=== PATIENT | female | born 1940 | race Caucasian/White ===

== ENCOUNTER 2021-01-22 17:58 | Inpatient (IN) ==
--- NOTE | 2021-01-22 18:11 | Emergency Department Note ---
Altered Mental Status HPI General Chief Complaint: Altered Mental Status Stated Complaint: fall and confusion Time Seen by Provider: 01/22/21 20:41 Source: patient Mode of arrival: ambulatory Limitations: altered mental status History of Present Illness HPI Narrative: Narrative: Presents to room T2 for evaluation of decreased level of consciousness. The patient's history is limited secondary to her decreased level of consciousness. Paramedics report that she was checked on earlier today and seemed to be somewhat confused. She was checked on again later and was noted to be found down on the ground. She was also noted to be wearing the wrong shoe on the wrong foot. There was also noted to be another shoe in the toilet and it was filled with stool. It is unclear when the patient's last known well time was. There was no obvious damage or trauma reported by EMS. Review of the patient's medical record notes that she was seen in the primary care clinic 4 days ago for follow-up. The patient has had a previous lumbar surgery. She also has a chronic pain syndrome per the medical record. Patient is awake but seems somewhat confused given history. She denies any specific focal complaints. She repeats several times that she had back surgery 8 months ago. Related Data Home Medications Medication Instructions Recorded Confirmed ondansetron HCl 4 mg tablet 4 mg PO Q8H 06/09/20 01/18/21 Previous Rx's Medication Instructions Recorded meloxicam 15 mg tablet 15 mg PO QDAY #90 tab 04/17/20 baclofen 20 mg tablet 20 mg PO BID PRN #180 tab 07/15/20 lisinopril 20 mg tablet 20 mg PO QDAY #30 tab 07/15/20 sertraline 50 mg tablet 50 mg PO QDAY #90 tab 10/05/20 trazodone 100 mg tablet See Rx Instructions .ROUTE 10/05/20 .COMPLEX #90 tab Allergies Allergy/AdvReac Type Severity Reaction Status Date / Time gabapentin Allergy Intermediate Confusion Verified 01/18/21 13:41 Review of Systems ROS ROS Narrative: Narrative: Limitations: ROS unobtainable due to patients medical condition [facility] Narrative Patient History Narrative: Narrative: Medical/Surgical/Family History All Active Problems (Updated 01/22/21 @ 21:23 by Franko Navarro MD) Acute delirium (Acute) Acute UTI (Acute) Severe sepsis (Acute) Ingrown nail (Acute) Lumbar pain (Acute) PTSD (post-traumatic stress disorder) (Acute) Headache (Acute) Basal cell adenocarcinoma (Acute) Neuropathy (Acute) Cough (Acute) Burn (Acute) Nail fungus (Acute) Sacral back pain (Acute) Skin lesion (Acute) Cognitive and neurobehavioral dysfunction (Acute) Confusion (Acute) UTI (urinary tract infection) (Acute) Urinary incontinence (Acute) Skin lesion (Acute) History of lumbar fusion (Acute) Osteoarthritis of both hips (Acute) SI (sacroiliac) joint dysfunction (Chronic) History of mammogram (Chronic ~2017) History of colonoscopy (Chronic ~2015) History of surgery (Chronic ~1999) History of cholecystectomy (Chronic ~1981) History of total abdominal hysterectomy (Chronic ~1979) Cervical disc disease (Chronic) Lumbar disc disease (Chronic) Pain in left arm (Chronic) Lymphedema (Chronic) Arthritis (Chronic) Edema of lower extremity (Chronic) Chronic pain syndrome (Chronic) Low back strain (Chronic) 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) Edema of upper extremity (Chronic) Hypertension (Chronic) Medical History (Updated 01/22/21 @ 21:23 by Franko Navarro MD) Arthritis Cervical disc disease Chronic pain syndrome Edema of lower extremity History of mammogram (~2017) Lumbar disc disease Lymphedema Pain in left arm Surgical History History of cholecystectomy (~1981) History of colonoscopy (~2015) History of surgery (~1999) left arm repair History of total abdominal hysterectomy (~1979) Family History Other No pertinent family history Social History Smoking Status: Former smoker Substance Use: does not use Exam Narrative Narrative: Narrative: General Limitations: altered mental status General appearance: Present alert and in no apparent distress Head Head: Present atraumatic, normocephalic and normal inspection Eye Eye: Present normal appearance, PERRL and EOMI; Absent conjunctival injection a nd nystagmus ENT ENT: Present normal exam and mucous membranes moist Neck Neck: Present normal inspection and trachea midline Respiratory Respiratory: Present normal lung sounds bilaterally; Absent respiratory distress Cardiovascular Cardiovascular: Present regular rate, normal rhythm and normal heart sounds Adbominal Abdominal: Present soft; Absent distention, tenderness, guarding and rebound Extremities Extremities: Present normal inspection; Absent tenderness Back Back: Present normal inspection; Absent tenderness Neurological Neurological: Present alert, CN II-XII intact and other (Limited neurologic exam secondary to the patient's altered level of consciousness. No obvious focal deficits identified); Absent motor sensory deficit Psychiatric Psychiatric: Present normal affect and normal mood Skin Skin: Present warm (WNL) and dry; Absent rash Course Vital Signs Vital signs: Vital Signs Temperature 98.4 F 01/22/21 17:59 Pulse Rate 98 H 01/22/21 17:59 Respiratory Rate 18 01/22/21 17:59 Blood Pressure 113/92 01/22/21 17:59 Pulse Oximetry (%) 94 01/22/21 17:59 Temperature 98.4 F 01/22/21 17:59 Pulse Rate 109 H 01/22/21 20:32 Respiratory Rate 18 01/22/21 20:32 Blood Pressure 82/54 01/22/21 20:32 Pulse Oximetry (%) 96 01/22/21 20:32 MDM MDM Narrative Medical decision making narrative: Narrative: Lab Data Lab results reviewed: Yes I reviewed the patient's lab results. Result diagrams: 01/22/21 18:19 01/22/21 18:19 Labs: Lab Results 01/22/21 01/22/21 01/22/21 Range/Units 18:19 18:19 18:19 WBC 15.0 H (4.5-11.0) K/mcL RBC 3.92 L (4.00-5.20) M/mcL Hgb 12.4 (12.0-15.0) g/dL Hct 37.1 (36.0-48.0) % MCV 94.6 (80.0-100.0) fL MCH 31.6 (26.0-34.0) pg MCHC 33.4 (31.0-36.0) g/dL RDW 13.2 (11.5-14.5) % Plt Count 203 (140-440) K/mcL MPV 9.3 (7.4-10.4) fL Neut % (Auto) 88.1 H (38.0-78.0) % Lymph % (Auto) 5.7 L (15.0-49.0) % [place] % (Auto) 6.0 (1.0-12.0) % Eos % (Auto) 0.1 (0.0-7.0) % Baso % (Auto) 0.1 (0.0-2.0) % Lymph # (Auto) 0.85 L (1.50-4.80) K/mcL [place] # (Auto) 0.90 (0.10-0.90) K/mcL Eos # (Auto) 0.01 (0.00-0.70) K/mcL Baso # (Auto) 0.02 (0.00-0.20) K/mcL Absolute Neutrophils 13.25 H (1.80-8.00) K/mcL VBG Lactic Acid 3.1 H (0.5-2.0) mmol/L Sodium 138 (133-145) mmol/L Potassium 4.0 (3.3-5.1) mmol/L Chloride 102 (96-108) mmol/L Carbon Dioxide 22 (22-30) mmol/L Anion Gap 14.0 (8.0-16.0) BUN 21 (8-23) mg/dL Creatinine 1.0 (0.6-1.1) mg/dL GFR Calculation 54 Glucose 141 H (70-105) mg/dL Calcium 9.1 (8.6-10.4) mg/dL Total Bilirubin 0.3 (0.1-1.0) mg/dL AST 24 (<32) U/L ALT 20 (<40) U/L Alkaline Phosphatase 76 (39-117) U/L Ammonia (11-51) umol/L Total Creatine Kinase (24-170) U/L Troponin T (<0.03) ng/mL Total Protein 6.1 (5.9-8.4) gm/dL Albumin 4.1 (3.2-5.2) gm/dL Globulin 2.0 L (2.2-3.7) gm/dL Albumin/Globulin Ratio 2.0 (1.0-2.3) Urine Color Urine Appearance (Clear) Urine pH (5.0-9.0) Ur Specific [place] (1.000-1.035) Urine Protein (Negative) mg/dL Urine Glucose (UA) (Negative) mg/dL Urine Ketones (Negative) mg/dL Urine Occult Blood (Negative) mg/dL Urine Nitrate (Negative) Urine Bilirubin (Negative) mg/dL Urine Urobilinogen mg/dL Ur Leukocyte Esterase (Negative) /ug Urine RBC (0-3) /hpf Urine WBC (0-4) /hpf Ur Squamous Epith Cells (0-4) /hpf Urine Bacteria (0) /hpf Hyaline Casts (0-2) /lph Urine Mucus (None) /hpf Ur Culture Indicated? Urine Opiates Screen Ur Opiates Confirm Ur Oxycodone Screen Urine Methadone Screen Ur Methadone Confirm Ur Barbiturates Screen Ur Barbiturate Confirm Ur Phencyclidine Scrn Urine PCP Confirm Ur Amphetamines Screen U Amphetamines Confirm U Benzodiazepines Scrn U Benzodiazepine Confm Urine Cocaine Screen Urine Cocaine Confirm U Cannabinoids Confirm U Marijuana (THC) Screen Ethyl Alcohol (<0.010) gm/dL 01/22/21 01/22/21 01/22/21 Range/Units 18:19 18:19 18:19 WBC (4.5-11.0) K/mcL RBC (4.00-5.20) M/mcL Hgb (12.0-15.0) g/dL Hct (36.0-48.0) % MCV (80.0-100.0) fL MCH (26.0-34.0) pg MCHC (31.0-36.0) g/dL RDW (11.5-14.5) % Plt Count (140-440) K/mcL MPV (7.4-10.4) fL Neut % (Auto) (38.0-78.0) % Lymph % (Auto) (15.0-49.0) % [place] % (Auto) (1.0-12.0) % Eos % (Auto) (0.0-7.0) % Baso % (Auto) (0.0-2.0) % Lymph # (Auto) (1.50-4.80) K/mcL [place] # (Auto) (0.10-0.90) K/mcL Eos # (Auto) (0.00-0.70) K/mcL Baso # (Auto) (0.00-0.20) K/mcL Absolute Neutrophils (1.80-8.00) K/mcL VBG Lactic Acid (0.5-2.0) mmol/L Sodium (133-145) mmol/L Potassium (3.3-5.1) mmol/L Chloride (96-108) mmol/L Carbon Dioxide (22-30) mmol/L Anion Gap (8.0-16.0) BUN (8-23) mg/dL Creatinine (0.6-1.1) mg/dL GFR Calculation Glucose (70-105) mg/dL Calcium (8.6-10.4) mg/dL Total Bilirubin (0.1-1.0) mg/dL AST (<32) U/L ALT (<40) U/L Alkaline Phosphatase (39-117) U/L Ammonia 45 (11-51) umol/L Total Creatine Kinase 41 (24-170) U/L Troponin T < 0.01 (<0.03) ng/mL Total Protein (5.9-8.4) gm/dL Albumin (3.2-5.2) gm/dL Globulin (2.2-3.7) gm/dL Albumin/Globulin Ratio (1.0-2.3) Urine Color Urine Appearance (Clear) Urine pH (5.0-9.0) Ur Specific [place] (1.000-1.035) Urine Protein (Negative) mg/dL Urine Glucose (UA) (Negative) mg/dL Urine Ketones (Negative) mg/dL Urine Occult Blood (Negative) mg/dL Urine Nitrate (Negative) Urine Bilirubin (Negative) mg/dL Urine Urobilinogen mg/dL Ur Leukocyte Esterase (Negative) /ug Urine RBC (0-3) /hpf Urine WBC (0-4) /hpf Ur Squamous Epith Cells (0-4) /hpf Urine Bacteria (0) /hpf Hyaline Casts (0-2) /lph Urine Mucus (None) /hpf Ur Culture Indicated? Urine Opiates Screen Ur Opiates Confirm Ur Oxycodone Screen Urine Methadone Screen Ur Methadone Confirm Ur Barbiturates Screen Ur Barbiturate Confirm Ur Phencyclidine Scrn Urine PCP Confirm Ur Amphetamines Screen U Amphetamines Confirm U Benzodiazepines Scrn U Benzodiazepine Confm Urine Cocaine Screen Urine Cocaine Confirm U Cannabinoids Confirm U Marijuana (THC) Screen Ethyl Alcohol (<0.010) gm/dL 01/22/21 01/22/21 01/22/21 Range/Units 18:19 18:44 18:44 WBC (4.5-11.0) K/mcL RBC (4.00-5.20) M/mcL Hgb (12.0-15.0) g/dL Hct (36.0-48.0) % MCV (80.0-100.0) fL MCH (26.0-34.0) pg MCHC (31.0-36.0) g/dL RDW (11.5-14.5) % Plt Count (140-440) K/mcL MPV (7.4-10.4) fL Neut % (Auto) (38.0-78.0) % Lymph % (Auto) (15.0-49.0) % [place] % (Auto) (1.0-12.0) % Eos % (Auto) (0.0-7.0) % Baso % (Auto) (0.0-2.0) % Lymph # (Auto) (1.50-4.80) K/mcL [place] # (Auto) (0.10-0.90) K/mcL Eos # (Auto) (0.00-0.70) K/mcL Baso # (Auto) (0.00-0.20) K/mcL Absolute Neutrophils (1.80-8.00) K/mcL VBG Lactic Acid (0.5-2.0) mmol/L Sodium (133-145) mmol/L Potassium (3.3-5.1) mmol/L Chloride (96-108) mmol/L Carbon Dioxide (22-30) mmol/L Anion Gap (8.0-16.0) BUN (8-23) mg/dL Creatinine (0.6-1.1) mg/dL GFR Calculation Glucose (70-105) mg/dL Calcium (8.6-10.4) mg/dL Total Bilirubin (0.1-1.0) mg/dL AST (<32) U/L ALT (<40) U/L Alkaline Phosphatase (39-117) U/L Ammonia (11-51) umol/L Total Creatine Kinase (24-170) U/L Troponin T (<0.03) ng/mL Total Protein (5.9-8.4) gm/dL Albumin (3.2-5.2) gm/dL Globulin (2.2-3.7) gm/dL Albumin/Globulin Ratio (1.0-2.3) Urine Color Yellow Urine Appearance Cloudy A (Clear) Urine pH 5.0 (5.0-9.0) Ur Specific [place] 1.019 (1.000-1.035) Urine Protein 30 A (Negative) mg/dL Urine Glucose (UA) Negative (Negative) mg/dL Urine Ketones Negative (Negative) mg/dL Urine Occult Blood Negative (Negative) mg/dL Urine Nitrate Pos A (Negative) Urine Bilirubin Negative (Negative) mg/dL Urine Urobilinogen 4.0 A mg/dL Ur Leukocyte Esterase 75 A (Negative) /ug Urine RBC 4 H (0-3) /hpf Urine WBC 123 H (0-4) /hpf Ur Squamous Epith Cells < 1 (0-4) /hpf Urine Bacteria Mod A (0) /hpf Hyaline Casts 5 H (0-2) /lph Urine Mucus Many A (None) /hpf Ur Culture Indicated? yes Urine Opiates Screen None detected Ur Opiates Confirm TNP Ur Oxycodone Screen None detected Urine Methadone Screen None detected Ur Methadone Confirm TNP Ur Barbiturates Screen None detected Ur Barbiturate Confirm TNP Ur Phencyclidine Scrn None detected Urine PCP Confirm TNP Ur Amphetamines Screen None detected U Amphetamines Confirm TNP U Benzodiazepines Scrn None detected U Benzodiazepine Confm TNP Urine Cocaine Screen None detected Urine Cocaine Confirm TNP U Cannabinoids Confirm TNP U Marijuana (THC) Screen None detected Ethyl Alcohol < 0.010 (<0.010) gm/dL Radiology Data Radiology results reviewed: Yes I reviewed the patient's radiology results. EKG Data EKG #1: EKG attestation: Yes I reviewed and interpreted this EKG., Yes There are no EKG findings of acute coronary syndrome and Yes This EKG will be read by battery charger tester EKG results narrative: Normal sinus rhythm, rate 89, normal ST, normal QRS, mild prolongation of the QT at 503, no ectopy Rhythm Strip Data Rhythm Strip Rate: 90 Interpretation: Normal sinus rhythm Pulse Oximetry Data Pulse Ox %: 99 Interpretation: Room air, normal CC TIME Critical Care Time Critical Care Time: Yes Total Critical Care Time: 30 Attestation: Approximately 30 minutes of critical care time was used in order to assess and manage the high probability of imminent or life threatening deterioration which required my highest level of preparedness and interventions with frequent patient assessments. This time is excluding time spent on separately billable procedures. On arrival the patient's was in no acute distress but she did appear to be con fused. CT scan of the head and C-spine was obtained which was normal. Labs noted to have leukocytosis at 15. The patient also was noted to have episodes of tachypnea and tachycardia consistent with SIRS. The patient does have a source of infection as the urine is positive. The patient's lactic acid is 3.1 consistent with severe sepsis. Cultures were obtained the patient was given a dose of IV Rocephin. Initially the patient had normal blood pressure however there was one episode of low blood pressure. This was felt to be spurious by the nursing staff. Regardless, the patient did receive a 30 mL/KG bolus based on ideal body weight. I have discussed the case with the hospitalist. The patient will require admission. Discharge Plan Patient/Caregiver Discharge Instructions Pt seen by PSYCHOLOGIST DEVELOPMENTAL/PA only: No Clinical Impression: Acute delirium, Acute UTI, Severe sepsis Patient Disposition: Xfer As Inpt ([facility]) Follow up with: Clarissa Santillan ARNP [Primary Care Provider] - Prescriptions: No Action ondansetron HCl [Zofran] 4 mg tablet 4 mg PO Q8H PRN (Reason: Nausea) RF: 0 baclofen 20 mg tablet 20 mg PO BID PRN (Reason: pain) Qty: 180 RF: 3 lisinopril 20 mg tablet 20 mg PO QDAY Qty: 30 RF: 4 meloxicam 15 mg tablet 15 mg PO QDAY Qty: 90 RF: 3 trazodone 100 mg tablet See Rx Instructions .ROUTE .COMPLEX Qty: 90 RF: 2 sertraline 50 mg tablet 50 mg PO QDAY Qty: 90 RF: 1
[2021-01-22 19:21] LABS: Basophils # (Auto) 0.02 K/mcL (0.00-0.20); Basophils % (Auto) 0.1 % (0.0-2.0); Eosinophils # (Auto) 0.01 K/mcL (0.00-0.70); Eosinophils % (Auto) 0.1 % (0.0-7.0); Hematocrit 37.1 % (36.0-48.0); Hemoglobin 12.4 g/dL (12.0-15.0); Lymphocytes # (Auto) 0.85 K/mcL (1.50-4.80); Lymphocytes % (Auto) 5.7 % (15.0-49.0); Mean Cell Volume 94.6 fL (80.0-100.0); Mean Corpuscular HGB Conc 33.4 g/dL (31.0-36.0); Mean Platelet Volume 9.3 fL (7.4-10.4); Neutrophils % (Auto) 88.1 % (38.0-78.0); Platelet Count 203 K/mcL (140-440); RBC 3.92 M/mcL (4.00-5.20); Red Cell Distribution Width 13.2 % (11.5-14.5)
[2021-01-22 19:29] LABS: Appearance,Urine CLOUDY (Clear); Bacteria,Urine MOD /hpf (0); Bilirubin,Urine Negative (Negative); Color,Urine Yellow; Culture Indicated,Urine yes; Glucose,Urine (UA) Negative (Negative); Ketones,Urine Negative (Negative); Leukocyte Esterase,Urine 75 /ug (Negative); Mucus,Urine MANY /hpf; Nitrate,Urine POS (Negative); Protein,Urine 30 mg/dL (Negative); Specific Gravity,Urine 1.019 (1.000-1.035); Urine Blood Negative (Negative); Urine Hyaline Cast 5 /lph (0-2); Urine RBC 4 /hpf (0-3); Urine Squamous Epithelial Cell < 1 /hpf (0-4); Urine WBC 123 /hpf (0-4)
[2021-01-22 19:44] LABS: Alcohol, Blood < 10.0 mg/dL; Alcohol,Blood < 0.010 gm/dL (<0.010)
[2021-01-22 19:45] LABS: Amphetamine Screen,Urine None detected; Barbiturate Screen,Urine None detected; Benzodiazepines Screen,Urine None detected; Cannabinoid Screen,Urine None detected; Cocaine Screen,Urine None detected; Opiate Screen,Urine None detected; Oxycodone, Urine Screen None detected; Phencyclidine Screen,Urine None detected
[2021-01-22 19:49] LABS: ALT/SGPT 20 U/L (<40); AST/SGOT 24 U/L (<32); Albumin 4.1 gm/dL (3.2-5.2); Alkaline Phosphatase 76 U/L (39-117); Bilirubin,Total 0.3 mg/dL (0.1-1.0); Blood Urea Nitrogen 21 mg/dL (8-23); Calcium 9.1 mg/dL (8.6-10.4); Carbon Dioxide 22 mmol/L (22-30); Chloride 102 mmol/L (96-108); Glomerular Filtration Rate 54; Glucose 141 mg/dL (70-105)
[2021-01-22] MEDS ORDERED: cefTRIAXone 1 GM VIAL IV ONE (20:43)
[2021-01-22] MEDS: COLD IV SCH ×4 (20:54→23:43)
[2021-01-22] MEDS: SODIUM CHLORIDE IV SCH ×4 (20:54→23:43)
--- NOTE | 2021-01-22 21:16 | Internal Med History&Physical ---
HPI History of Present Illness Patient information: Note initiated : 01/22/21 at 9:05 pm Service Date, if different from initiated Date: [] Patient: Eliane Santillan 80 y/o F admitted on for fall and confusion. Chief Complaint: [] History of present illness: Ms. Santillan is a 80 year old female with a history of hypertension, chronic pain no longer on opioids, traumatic brain injury complicated by cognitive impairment per chart review who was braught to the ED by her friend for confusion. Her friend found her at home covered in feces. She says she spoke with her by phone yesterday and felt the patient sounded like her normal self. In the ED the patient had a Ct head which did not show any acute changes, routine labs showed a leukocytosis and elevated lactic acid. Urine analysis was suggestive of UTI. The patient was started on IV fluid and Ce ftriaxone. The hospitalists were consulted for admission. Physical exam reveals a confused female who is able to follow commands and move all extremities purposefully. The neuro exam is otherwise nonfocal. She is no in any respiratory distress, abdomen was benign on exam. UDS was not positive for any substance that could explain encephalopathy. Sepsis from UTI is the most likely reason for encephalopathy. Constitutional: no fever, fatigue, or weight loss Eyes: no vision changes or pain Cardiovascular: no chest pain, no palpitations Respiratory: no cough or dyspnea Gastrointestinal: no abdominal pain, no nausea, vomiting, or diarrhea Genitourinary: no dysuria or difficulty voiding Musculoskeletal: no arthralgia or myalgia Integumentary: no skin lesion or wound Neurological: no focal weakness or numbness Psychiatric: memory impairment Head: Atraumatic, normal inspection. Eyes: normal appearance, no scleral icterus. Neck: full ROM Respiratory: no respiratory distress. Cardiovascular: normal rate and rhythm, S1, S2. GI/Abdominal: soft, nontender, no guarding. Extremities: full range of motion, nontender. Neurological: CN II-XII intact, intact motor, intact sensation, mild aphasia Psychiatric: impaired memory Skin: warm, normal color PFSH PFSH All Active Problems (Updated 01/22/21 @ 21:23 by Franko Navarro MD) Acute delirium (Acute) Acute UTI (Acute) Severe sepsis (Acute) Ingrown nail (Acute) Lumbar pain (Acute) PTSD (post-traumatic stress disorder) (Acute) Headache (Acute) Basal cell adenocarcinoma (Acute) Neuropathy (Acute) Cough (Acute) Burn (Acute) Nail fungus (Acute) Sacral back pain (Acute) Skin lesion (Acute) Cognitive and neurobehavioral dysfunction (Acute) Confusion (Acute) UTI (urinary tract infection) (Acute) Urinary incontinence (Acute) Skin lesion (Acute) History of lumbar fusion (Acute) Osteoarthritis of both hips (Acute) SI (sacroiliac) joint dysfunction (Chronic) History of mammogram (Chronic ~2017) History of colonoscopy (Chronic ~2015) History of surgery (Chronic ~1999) History of cholecystectomy (Chronic ~1981) History of total abdominal hysterectomy (Chronic ~1979) Cervical disc disease (Chronic) Lumbar disc disease (Chronic) Pain in left arm (Chronic) Lymphedema (Chronic) Arthritis (Chronic) Edema of lower extremity (Chronic) Chronic pain syndrome (Chronic) Low back strain (Chronic) 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) Edema of upper extremity (Chronic) Hypertension (Chronic) Medical History (Updated 01/22/21 @ 21:23 by Franko Navarro MD) Arthritis Cervical disc disease Chronic pain syndrome Edema of lower extremity History of mammogram (~2017) Lumbar disc disease Lymphedema Pain in left arm Surgical History History of cholecystectomy (~1981) History of colonoscopy (~2015) History of surgery (~1999) left arm repair History of total abdominal hysterectomy (~1979) Family History Other No pertinent family history Social History marital status: substance use type: does not use MEDS/ALLERGIES Home Medications and Allergies Home Medications Medication Instructions Recorded Confirmed Type meloxicam 15 mg tablet 15 mg PO QDAY #90 tab 04/17/20 01/22/21 Rx ondansetron HCl 4 mg tablet 4 mg PO Q8H PRN 06/09/20 01/22/21 History baclofen 20 mg tablet 20 mg PO BID PRN #180 tab 07/15/20 01/22/21 Rx lisinopril 20 mg tablet 20 mg PO QDAY #30 tab 07/15/20 01/22/21 Rx sertraline 50 mg tablet 50 mg PO QDAY #90 tab 10/05/20 01/22/21 Rx trazodone 100 mg tablet See Rx Instructions .ROUTE 10/05/20 01/22/21 Rx .COMPLEX #90 tab Allergies Allergy/AdvReac Type Severity Reaction Status Date / Time gabapentin AdvReac Mild Confusion Verified 01/23/21 07:38 EXAM Constitutional Vitals: Temp Pulse Resp BP Pulse Ox 98.4 F 75 17 138/87 99 01/22/21 17:59 01/22/21 20:49 01/22/21 20:49 01/22/21 20:49 01/22/21 20:49 DATA Data Completed and Pending Labs: Labs from last 24 hours 01/22/21 01/22/21 01/22/21 18:44 18:44 18:19 WBC RBC Hgb Hct MCV MCH MCHC RDW Plt Count MPV Neut % (Auto) Lymph % (Auto) [place] % (Auto) Eos % (Auto) Baso % (Auto) Lymph # (Auto) [place] # (Auto) Eos # (Auto) Baso # (Auto) Absolute Neutrophils VBG Lactic Acid Sodium Potassium Chloride Carbon Dioxide Anion Gap BUN Creatinine GFR Calculation Glucose Calcium Total Bilirubin AST ALT Alkaline Phosphatase Ammonia Total Creatine Kinase Troponin T Total Protein Albumin Globulin Albumin/Globulin Ratio Urine Color Yellow Urine Appearance Cloudy A Urine pH 5.0 Ur Specific Belle 1.019 Urine Protein 30 A Urine Glucose (UA) Negative Urine Ketones Negative Urine Occult Blood Negative Urine Nitrate Pos A Urine Bilirubin Negative Urine Urobilinogen 4.0 A Ur Leukocyte Esterase 75 A Urine RBC 4 H Urine WBC 123 H Ur Squamous Epith Cells < 1 Urine Bacteria Mod A Hyaline Casts 5 H Urine Mucus Many A Ur Culture Indicated? yes Urine Opiates Screen None detected Ur Opiates Confirm TNP Ur Oxycodone Screen None detected Urine Methadone Screen None detected Ur Methadone Confirm TNP Ur Barbiturates Screen None detected Ur Barbiturate Confirm TNP Ur Phencyclidine Scrn None detected Urine PCP Confirm TNP Ur Amphetamines Screen None detected U Amphetamines Confirm TNP U Benzodiazepines Scrn None detected U Benzodiazepine Confm TNP Urine Cocaine Screen None detected Urine Cocaine Confirm TNP U Cannabinoids Confirm TNP U Marijuana (THC) Screen None detected Ethyl Alcohol < 0.010 01/22/21 01/22/21 01/22/21 18:19 18:19 18:19 WBC RBC Hgb Hct MCV MCH MCHC RDW Plt Count MPV Neut % (Auto) Lymph % (Auto) [place] % (Auto) Eos % (Auto) Baso % (Auto) Lymph # (Auto) [place] # (Auto) Eos # (Auto) Baso # (Auto) Absolute Neutrophils VBG Lactic Acid Sodium Potassium Chloride Carbon Dioxide Anion Gap BUN Creatinine GFR Calculation Glucose Calcium Total Bilirubin AST ALT Alkaline Phosphatase Ammonia 45 Total Creatine Kinase 41 Troponin T < 0.01 Total Protein Albumin Globulin Albumin/Globulin Ratio Urine Color Urine Appearance Urine pH Ur Specific Belle Urine Protein Urine Glucose (UA) Urine Ketones Urine Occult Blood Urine Nitrate Urine Bilirubin Urine Urobilinogen Ur Leukocyte Esterase Urine RBC Urine WBC Ur Squamous Epith Cells Urine Bacteria Hyaline Casts Urine Mucus Ur Culture Indicated? Urine Opiates Screen Ur Opiates Confirm Ur Oxycodone Screen Urine Methadone Screen Ur Methadone Confirm Ur Barbiturates Screen Ur Barbiturate Confirm Ur Phencyclidine Scrn Urine PCP Confirm Ur Amphetamines Screen U Amphetamines Confirm U Benzodiazepines Scrn U Benzodiazepine Confm Urine Cocaine Screen Urine Cocaine Confirm U Cannabinoids Confirm U Marijuana (THC) Screen Ethyl Alcohol 01/22/21 01/22/21 01/22/21 18:19 18:19 18:19 WBC 15.0 H RBC 3.92 L Hgb 12.4 Hct 37.1 MCV 94.6 MCH 31.6 MCHC 33.4 RDW 13.2 Plt Count 203 MPV 9.3 Neut % (Auto) 88.1 H Lymph % (Auto) 5.7 L [place] % (Auto) 6.0 Eos % (Auto) 0.1 Baso % (Auto) 0.1 Lymph # (Auto) 0.85 L [place] # (Auto) 0.90 Eos # (Auto) 0.01 Baso # (Auto) 0.02 Absolute Neutrophils 13.25 H VBG Lactic Acid 3.1 H Sodium 138 Potassium 4.0 Chloride 102 Carbon Dioxide 22 Anion Gap 14.0 BUN 21 Creatinine 1.0 GFR Calculation 54 Glucose 141 H Calcium 9.1 Total Bilirubin 0.3 AST 24 ALT 20 Alkaline Phosphatase 76 Ammonia Total Creatine Kinase Troponin T Total Protein 6.1 Albumin 4.1 Globulin 2.0 L Albumin/Globulin Ratio 2.0 Urine Color Urine Appearance Urine pH Ur Specific Belle Urine Protein Urine Glucose (UA) Urine Ketones Urine Occult Blood Urine Nitrate Urine Bilirubin Urine Urobilinogen Ur Leukocyte Esterase Urine RBC Urine WBC Ur Squamous Epith Cells Urine Bacteria Hyaline Casts Urine Mucus Ur Culture Indicated? Urine Opiates Screen Ur Opiates Confirm Ur Oxycodone Screen Urine Methadone Screen Ur Methadone Confirm Ur Barbiturates Screen Ur Barbiturate Confirm Ur Phencyclidine Scrn Urine PCP Confirm Ur Amphetamines Screen U Amphetamines Confirm U Benzodiazepines Scrn U Benzodiazepine Confm Urine Cocaine Screen Urine Cocaine Confirm U Cannabinoids Confirm U Marijuana (THC) Screen Ethyl Alcohol A/P Narrative A/P Narrative: Assessment: 80 year old female with a history of hypertension, chronic pain (no longer on opioids), history of traumatic brain injury (complicated by cognitive impairment per chart review), PTSD, who lives alone and was brought to the ED by a friend for encephalopathy. The most likely reason for encephalopathy is sepsis secondary to UTI. #Sepsis secondary to UTI #Encephalopathy secondary to sepsis #Essential hypertension #Hx traumatic brain injury #PTSD Plan -Ceftriaxone IV for now. -IV fluid per sepsis protocol -Follow lactic acid, vitals. -Follow urine and blood cultures -Consider MRI brain if encephalopathy does not improve with abx and IV fluid. -Medication reconciliation. -Delirium precautions, avoid opioids, benzos, anticholinergics. -DVT ppx: heparin SQ -Code status: Full -Disposition: TBD Time Spent With Patient Time: Total time spent is greater than 50% in coordination of care (as documented) at patient's floor/unit and/or counseling patient:
[2021-01-22] MEDS ORDERED: MELATONIN 3 MG TABLET PO PRN (22:49)
[2021-01-22] MEDS ORDERED: ONDANSETRON 4 MG/2 ML VIAL IV PRN (22:49)
[2021-01-23] MEDS: SENNOSIDES 1 TABLET PO SCH ×3 (00:16→21:40)
[2021-01-23] MEDS: DOCUSATE SODIUM 100 MG CAPSULE PO SCH ×4 (00:16→21:40)
[2021-01-23] MEDS: SODIUM CHLORIDE IV SCH ×5 (00:20→05:05)
[2021-01-23] MEDS: COLD IV SCH ×5 (00:20→05:05)
[2021-01-23] MEDS ORDERED: HEPARIN 5,000 UNIT/ML VIAL ONE (00:24)
[2021-01-23] MEDS: HEPARIN 5,000 UNIT/ML VIAL SQ SCH ×3 (00:34→21:34)
[2021-01-23] MEDS: 0.9 % SODIUM CHLORIDE 10 ML SYRINGE IV SCH ×4 (00:34→21:34)
[2021-01-23] MEDS: 0.9 % SODIUM CHLORIDE 1,000 ML IV SCH ×5 (01:37→17:50)
--- NOTE | 2021-01-23 02:47 | XRay Report ---
CLINICAL INFORMATION: Trauma-fall COMPARISON: 06/26/2020 TECHNIQUE: Portable FINDINGS: The heart size, mediastinum and pulmonary vessels are unremarkable. The lungs are clear. There are no effusions. The bones and soft tissues are within normal limits. IMPRESSION: Normal chest. Interpreted and Authenticated by: Koffi Looney 01/23/21
--- NOTE | 2021-01-23 03:04 | Cat Scan Report ---
CLINICAL INFORMATION: Trauma COMPARISON: None. TECHNIQUE: 2.5 mm helical slices were obtained in the skull base to vertex. Following reconstruction, axial reformatted images were reviewed at bone and parenchymal windows. The exam was performed using radiation dose optimization techniques including, but not limited to, automated exposure control, adjustment of the mA and/or kV according to patient size and use of iterative reconstruction technique. FINDINGS: The ventricles, sulci, fissures, and cisterns are normal in size and configuration for age. No extra-axial fluid collections are identified. The cerebrum, brainstem and cerebellum are unremarkable. There is no evidence of hemorrhage, mass effect, or edema. Bone windows show no osseous abnormality. IMPRESSION: Normal head CT without contrast for age. Interpreted and Authenticated by: Koffi Looney 01/23/21
--- NOTE | 2021-01-23 04:15 | Cat Scan Report ---
CLINICAL INFORMATION: Trauma COMPARISON: None. TECHNIQUE: 0.625 mm helical slices were obtained from the skull base through the superior T2 end plate, and following reconstruction, 2.5 mm sagittal, coronal and axial reformations were then processed. The exam was reviewed at bone and soft tissue windows. The exam was performed using radiation dose optimization techniques including, but not limited to, automated exposure control, adjustment of the mA and/or kV according to patient size and use of iterative reconstruction technique. FINDINGS: Sagittal reformatted images show 4 mm of C3 anterior subluxation and 3 mm of C7 anterior subluxation due to degenerative facet disease. The remaining spine is anatomically aligned. There is no fracture or other significant osseous abnormality. The cervical cord is normal in contour and caliber without hemorrhage or other abnormality. Paraspinous soft tissues are normal. The C2-3 disc level is normal. At C3-4, mild broad disc spur complex grade 1 spondylolisthesis and facet arthropathy resulting in mild central canal and mild bilateral IV foraminal narrowing. At C4-5, moderate broad disc spur complex and facet arthropathy result in mild central canal and mild bilateral IV foraminal narrowing At C5-C6, moderate broad disc spur complex with left-sided asymmetry results in moderate central canal, left lateral recess and IV foraminal narrowing. There is potential impingement of the exiting left C6 nerve root. At C6-C7, moderate broad disc spur complex results in moderate central canal and moderate left IV foraminal narrowing. At C7-T1, there is severe left IV foraminal narrowing due to grade 1 spondylolisthesis and degenerative spurring. There is possible impingement of the exiting left C8 nerve root IMPRESSION: 1. No fracture or other acute posttraumatic change. 2. Multilevel degeneration-as described Interpreted and Authenticated by: Koffi Looney 01/23/21
[2021-01-23 07:48] LABS: Hematocrit 32.5 % (36.0-48.0); Hemoglobin 10.6 g/dL (12.0-15.0); Mean Cell Volume 96.7 fL (80.0-100.0); Mean Corpuscular HGB Conc 32.6 g/dL (31.0-36.0); Mean Platelet Volume 9.4 fL (7.4-10.4); Platelet Count 198 K/mcL (140-440); RBC 3.36 M/mcL (4.00-5.20); Red Cell Distribution Width 13.3 % (11.5-14.5); WBC 12.1 K/mcL (4.5-11.0)
[2021-01-23] MEDS: LISINOPRIL 20 MG TABLET PO SCH (08:19)
[2021-01-23] MEDS: SERTRALINE 50 MG TABLET PO SCH (08:19)
[2021-01-23 08:22] LABS: Blood Urea Nitrogen 19 mg/dL (8-23); Calcium 8.6 mg/dL (8.6-10.4); Carbon Dioxide 23 mmol/L (22-30); Chloride 107 mmol/L (96-108); Glomerular Filtration Rate 87; Glucose 99 mg/dL (70-105)
[2021-01-23 08:58] LABS: Eosinophils % (Manual) 2 % (0-7); Lymphocytes % 11 % (15-49); Monocytes % (Manual) 2 % (1-12); Platelet Estimate NORMAL (Normal); RBC Morphology NORMAL (Normal); Segmented Neutrophils % 85 % (38-78)
--- NOTE | 2021-01-23 12:38 | Magnetic Resonance Report ---
CLINICAL INFORMATION: expressive aphasia COMPARISON: Head CT 01/22/2021 TECHNIQUE: Sagittal T1 FLAIR, axial T2 FLAIR diffusion ADC images were acquired. FINDINGS: The ventricles, sulci, fissures and cisterns are symmetrically enlarged cyst with mild age-related atrophy. There are a few scattered chronic ischemic foci in the cerebral white matter-less than than typically seen is a true. There are no regions restricted diffusion to four acute infarct. No hemorrhage mass effect or other acute finding. Signal void in intracerebral arteries, extra-axial cranial nerves, pituitary and orbits are normal. IMPRESSION: Mild atrophy and few very few scattered chronic ischemic foci in the cerebral white matter-less than typically seen in this age group. No restricted diffusion to suggest acute infarct Interpreted and Authenticated by: Koffi Looney 01/23/21
[2021-01-23] MEDS: cefTRIAXone 1 GM VIAL IV SCH (12:48)
[2021-01-23] MEDS ORDERED: ACETAMINOPHEN 160 MG/5 ML ORAL.SOL PO PRN (17:13)
--- NOTE | 2021-01-23 17:58 | Internal Med Progress Note ---
SUBJECTIVE Subjective Patient information: Note initiated : 01/23/21 at 5:53 pm Service Date, if different from initiated Date: [] Patient: Eliane Santillan 80 y/o F admitted on 01/22/21 for fall and confusion. Chief Complaint: [] Interval history: Ms. Santillan is a 80 year old female with a history of hypertension, chronic pain no longer on opioids, traumatic brain injury complicated by cognitive impairment per chart review who was braught to the ED by her friend for confusion. Her friend found her at home covered in feces. She says she spoke with her by phone yesterday and felt the patient sounded like her normal self. In the ED the patient had a Ct head which did not show any acute changes, routine labs showed a leukocytosis and elevated lactic acid. Urine analysis was suggestive of UTI. The patient was started on IV fluid and Ceftriaxone. The hospitalists were consulted for admission. Physical exam reveals a confused female who is able to follow commands and move all extremities purposefully. The neuro exam is otherwise nonfocal. She is no in any respiratory distress, abdomen was benign on exam. UDS was not positive for any substance that could explain encephalopathy. Sepsis from UTI is the most likely reason for encephalopathy. 01/23-encephalopathy has improved but not back to baseline, aphasia concerning for possible stroke so MRI brain ordered but no evidence of acute infarct. Ceftriaxone continued, urine culture growing E coli. Resume home medications for muscle spasms and pain. Head: Atraumatic, normal inspection. Eyes: normal appearance, no scleral icterus. Neck: full ROM Respiratory: no respiratory distress. Cardiovascular: normal rate and rhythm, S1, S2. GI/Abdominal: soft, nontender, no guarding. Extremities: full range of motion, nontender. Neurological: CN II-XII intact, intact motor, intact sensation, aphasia has improved Psychiatric: overall improvement in memory Skin: warm, normal color Constitutional Vitals: Vital Signs Temp Pulse Resp BP Pulse Ox 98.7 F 72 18 155/75 95 01/23/21 16:00 01/23/21 16:00 01/23/21 16:00 01/23/21 16:00 01/23/21 16:00 Period Temp Pulse Resp BP Sys/Esteves Pulse Ox Last 24 Hr 97.6 F-98.7 F 56-109 16- 105-192/67-122 92-100 Intake and Output 01/23/21 01/23/21 01/23/21 05:59 13:59 21:59 Intake Total 2312 2818 2342 Output Total 300 825 300 Balance 2011 1992 2041 Weight 68.492 kg Intake & Output: Intake & Output 01/23/21 01/23/21 01/23/21 05:59 13:59 21:59 Intake Total 2312 2818 2342 Output Total 300 825 300 Balance 2011 1992 2041 Weight 68.492 kg Intake: IV 2072 1258 742 Sodium Chloride 0.9% 1,000 ml @ 1258 742 150 mls/hr IV .Q6H40M [facility] Rx#: [id number] Cold Sodium Chloride 0.9% 1,503 2072 ml @ 1503 mls/hr IV .Q1H [facility] Rx#:[id number] Oral 240 1560 1600 Output: Void Amount 300 825 300 Other: Meal egg salad sandwich Lunch Percent of Meal Consumed 75% 100% Feeding Ability Independent Assist with Tray Set Up Urine Appearance Cloudy Urine Color Light Salud Dark Yellow Urine Odor Foul Stool Size Small Stool Color Brown Blood Tinged Stool Consistency Formed # Voids 1 1 # Bowel Movements 1 OBJ DATA Labs CBC & Chem 7: 01/23/21 06:23 01/23/21 06:23 Labs: Abnormal Lab Results 01/23/21 01/22/21 01/22/21 06:23 18:44 18:19 WBC 12.1 H RBC 3.36 L Hgb 10.6 L Hct 32.5 L Neut % (Auto) Lymph % (Auto) Lymph # (Auto) Seg Neutrophils % 85 H Lymphocytes % 11 L Absolute Neutrophils VBG Lactic Acid 3.1 H Glucose Globulin Urine Appearance Cloudy A Urine Protein 30 A Urine Nitrate Pos A Urine Urobilinogen 4.0 A Ur Leukocyte Esterase 75 A Urine RBC 4 H Urine WBC 123 H Urine Bacteria Mod A Hyaline Casts 5 H Urine Mucus Many A 01/22/21 01/22/21 18:19 18:19 WBC 15.0 H RBC 3.92 L Hgb Hct Neut % (Auto) 88.1 H Lymph % (Auto) 5.7 L Lymph # (Auto) 0.85 L Seg Neutrophils % Lymphocytes % Absolute Neutrophils 13.25 H VBG Lactic Acid Glucose 141 H Globulin 2.0 L Urine Appearance Urine Protein Urine Nitrate Urine Urobilinogen Ur Leukocyte Esterase Urine RBC Urine WBC Urine Bacteria Hyaline Casts Urine Mucus Meds: Medications Acetaminophen (Acetaminophen 160 Mg/5 Ml Oral.Sania) 650 mg PO Q6HP PRN; Protocol PRN Reason: Per Pain Protocol Ceftriaxone Sodium (Ceftriaxone 1 Gm Vial) 1 gm IV Q24H [facility] Last Admin: 01/23/21 12:48 Dose: 1 gm Documented by: Docusate Sodium (Docusate Sodium 100 Mg Capsule) 100 mg PO BID [facility] Last Admin: 01/23/21 08:20 Dose: Not Given Documented by: Heparin Sodium (Porcine) (Heparin 5,000 Unit/Ml Vial) 5,000 unit SQ Q12 [facility] Last Admin: 01/23/21 08:19 Dose: 5,000 unit Documented by: Sodium Chloride (Sodium Chloride 0.9%) 1,000 mls @ 150 mls/hr IV .Q6H40M [facility] Last Admin: 01/23/21 17:50 Dose: 150 mls/hr Documented by: Lisinopril (Lisinopril 20 Mg Tablet) 20 mg PO QDAY [facility] Last Admin: 01/23/21 08:19 Dose: 20 mg Documented by: Melatonin (Melatonin 3 Mg Tablet) 3 mg PO HSP PRN PRN Reason: Insomnia Non-Formulary Medication (Baclofen) 20 mg PO BID PRN PRN Reason: pain Non-Formulary Medication (Meloxicam) 15 mg PO QDAY [facility] Ondansetron HCl (Ondansetron 4 Mg/2 Ml Vial) 4 mg IV Q6HP PRN PRN Reason: Nausea And Vomiting Last Admin: 01/23/21 08:20 Dose: 4 mg Documented by: Pneumococcal Polyvalent Vaccine (Pneumococcal 23-Eboni P-Sac Vac 0.5 Ml Syringe) 0.5 ml IM .ONCE ONE Stop: 01/24/21 10:01 Senna (Sennosides 1 Tablet) 2 tab PO HS [facility] Last Admin: 01/23/21 00:16 Dose: Not Given Documented by: Sertraline HCl (Sertraline 50 Mg Tablet) 50 mg PO QDAY [facility] Last Admin: 01/23/21 08:19 Dose: 50 mg Documented by: Sodium Chloride (0.9 % Sodium Chloride 10 Ml Syringe) 10 ml IV Q8 [facility] Last Admin: 01/23/21 12:40 Dose: 10 ml Documented by: A/P Narrative A/P Narrative: Assessment: 80 year old female with a history of hypertension, chronic pain (no longer on opioids), history of traumatic brain injury (complicated by cognitive impairment per chart review), PTSD, who lives alone and was brought to the ED by a friend for encephalopathy. The most likely reason for encephalopathy is sepsis secondary to UTI. #Sepsis secondary to E coli UTI #Encephalopathy secondary to sepsis -improving #Essential hypertension #Hx traumatic brain injury #PTSD Plan -Ceftriaxone IV, deescalation based on urine culture. -Follow urine and blood cultures -Follow WBC -Resume home lisinopril, baclofen, meloxicam, sertraline. -Delirium precautions, avoid opioids, benzos, anticholinergics. -PT/OT -DVT ppx: heparin SQ -Code status: Full -Disposition: probably home Time Spent With Patient Time: Total time spent is greater than 50% in coordination of care (as documented) at patient's floor/unit and/or counseling patient: QUALITY Stroke Symptom Onset Unknown: No VTE Deep Vein Thrombosis/Pulmonary Embolism Present on Admission: No
[2021-01-23] MEDS ORDERED: BACLOFEN 10 MG TABLET PO PRN (18:25)
[2021-01-23] MEDS ORDERED: LABETALOL 5 MG/ML ML IV PRN (20:36)
[2021-01-23] MEDS ORDERED: cefTRIAXone 1 GM in DEXTROSE 5% IN WATER 50 ML IV SCH (21:00)
[2021-01-23] MEDS: amLODIPine 5 MG TABLET PO SCH (21:34)
[2021-01-23] MEDS ORDERED: traZODone HCL 100 MG TABLET PO PRN (21:49)
[2021-01-23] MEDS ORDERED: traZODone HCL 50 MG TABLET ONE (21:54)
[2021-01-24] MEDS: 0.9 % SODIUM CHLORIDE 10 ML SYRINGE IV SCH (05:56)
[2021-01-24 07:44] LABS: Hematocrit 34.1 % (36.0-48.0); Mean Cell Volume 96.3 fL (80.0-100.0); Mean Corpuscular HGB Conc 32.3 g/dL (31.0-36.0); Mean Platelet Volume 9.2 fL (7.4-10.4); Platelet Count 196 K/mcL (140-440); RBC 3.54 M/mcL (4.00-5.20); Red Cell Distribution Width 13.1 % (11.5-14.5)
[2021-01-24 08:03] LABS: Blood Urea Nitrogen 10 mg/dL (8-23); Calcium 8.7 mg/dL (8.6-10.4); Carbon Dioxide 27 mmol/L (22-30); Chloride 106 mmol/L (96-108); Glomerular Filtration Rate 92; Glucose 86 mg/dL (70-105)
[2021-01-24] MEDS: SERTRALINE 50 MG TABLET PO SCH (08:10)
[2021-01-24] MEDS: DOCUSATE SODIUM 100 MG CAPSULE PO SCH (08:10)
[2021-01-24] MEDS: amLODIPine 5 MG TABLET PO SCH (08:11)
[2021-01-24] MEDS: LISINOPRIL 20 MG TABLET PO SCH (08:12)
[2021-01-24] MEDS: HEPARIN 5,000 UNIT/ML VIAL SQ SCH (08:13)
[2021-01-24] MEDS: cefTRIAXone 1 GM VIAL IV SCH (08:21)
[2021-01-24 08:31] LABS: Eosinophils % (Manual) 3 % (0-7); Lymphocytes % 24 % (15-49); Monocytes % (Manual) 6 % (1-12); Platelet Estimate NORMAL (Normal); RBC Morphology NORMAL (Normal); Reactive Lymphocytes 3 % (0-2); Segmented Neutrophils % 64 % (38-78)
[2021-01-24] MEDS ORDERED: MELOXICAM 7.5 MG TABLET PO SCH (09:00)
[2021-01-24] MEDS ORDERED: PNEUMOCOCCAL 23-VAL P-SAC VAC 0.5 ML SYRINGE IM ONE (10:00)
--- NOTE | 2021-01-24 12:58 | Discharge Summary ---
Discharge Provider Provider Patient information: Note initiated : 01/24/21 at 12:54 pm Service Date, if different from initiated Date: [] Patient: Eliane Santillan 80 y/o F admitted on 01/22/21 for fall and confusion. Chief Complaint: [] Date of admission: 01/22/21 22:45 Discharge date: 01/24/21 Primary care physician: Clarissa Santillan Consults: 01/22/21 Consult to Physician [CONS] Stat Comment: Consulting Provider: Shashi Srinivasan Reason For Exam: Physician to Consult Discharge Meds Discharge Medications Home Medications meloxicam 15 mg tablet 15 mg PO QDAY #90 tab 04/17/20 [Rx Confirmed 01/22/21 Last Taken Unknown] ondansetron HCl 4 mg tablet 4 mg PO Q8H PRN 06/09/20 [History Confirmed 01/22/21 Last Taken Unknown] baclofen 20 mg tablet 20 mg PO BID PRN #180 tab 07/15/20 [Rx Confirmed 01/22/21 Last Taken Unknown] lisinopril 20 mg tablet 20 mg PO QDAY #30 tab 07/15/20 [Rx Confirmed 01/22/21 Last Taken Unknown] sertraline 50 mg tablet 50 mg PO QDAY #90 tab 10/05/20 [Rx Confirmed 01/22/21 Last Taken Unknown] trazodone 100 mg tablet See Rx Instructions .ROUTE .COMPLEX #90 tab 10/05/20 [Rx Confirmed 01/22/21 Last Taken Unknown] sulfamethoxazole-trimethoprim 1 tab PO BID 6 Days #12 tab 01/24/21 [Rx Last Take n Unknown] COURSE Hospital Course Hospital course: Ms. 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 Her friend found her at home covered in feces. She says she spoke with her by phone yesterday and felt the patient sounded like her normal self. In the ED the patient had a Ct head which did not show any acute changes, routine labs showed a leukocytosis and elevated lactic acid. Urine analysis was suggestive of UTI. The patient was started on IV fluid and Ceftriaxone. The hospitalists were consulted for admission. Physical exam reveals a confused female who is able to follow commands and move all extremities purposefully. The neuro exam is otherwise nonfocal. She is no in any respiratory distress, abdomen was benign on exam. UDS was not positive for any substance that could explain encephalopathy. Sepsis from UTI is the most likely reason for encephalopathy. 01/23-encephalopathy has improved but not back to baseline, aphasia concerning for possible stroke so MRI brain ordered but no evidence of acute infarct. Ceftriaxone continued, urine culture growing E coli. Resume home medications for muscle spasms and pain. MRI brain negative for acute stroke. 01/24-encephalopathy resolved, the patient is near baseline, plan discussed with patient's sister and patient at bedside. E coli sensitive to Bactrim, plan to complete 7 day antibiotic treatment with Bactrim. Blood cultures showing no growth to date. Discharged to home with close family and friend support and outpatient physical therapy. The patient declined home health. Discharge diagnosis: Encephalopathy secondary to sepsis Secondary discharge diagnosis: Complicated urinary tract infection secondary to E coli Recurrent UTI Reason for admission: Encephalopathy Time Spent with Patient Time attestation: Total time spent providing and/or coordinating discharge services: EXAM Constitutional Vitals: Temp Pulse Resp BP Pulse Ox 97.9 F 72 16 133/66 93 01/24/21 11:35 01/24/21 11:35 01/24/21 11:35 01/24/21 11:35 01/24/21 11:35 Discharge Data Data Completed and Pending Labs on day of discharge: Labs from last 24 hours 01/24/21 01/24/21 06:15 06:15 WBC 7.0 RBC 3.54 L Hgb 11.0 L Hct 34.1 L MCV 96.3 MCH 31.1 MCHC 32.3 RDW 13.1 Plt Count 196 MPV 9.2 Seg Neutrophils % 64 Lymphocytes % 24 Monocytes % (Manual) 6 Eosinophils % (Manual) 3 Reactive Lymphocytes 3 H Platelet Estimate Normal RBC Morphology Normal Sodium 139 Potassium 3.3 Chloride 106 Carbon Dioxide 27 Anion Gap 6.0 L BUN 10 Creatinine 0.5 L GFR Calculation 92 Glucose 86 Calcium 8.7 Preliminary micro results at discharge 01/22/21 22:00 Blood Culture - Preliminary Blood 01/22/21 21:18 Blood Culture - Preliminary Blood Discharge Plan Patient/Caregiver Discharge Instructions Activity: increase activity as tolerated Diet: Regular Diet Prescriptions: New sulfamethoxazole-trimethoprim 800-160 mg Tablet 1 tab PO BID 6 Days Qty: 12 RF: 0 Continued ondansetron HCl [Zofran] 4 mg tablet 4 mg PO Q8H PRN (Reason: Nausea) RF: 0 baclofen 20 mg tablet 20 mg PO BID PRN (Reason: pain) Qty: 180 RF: 3 lisinopril 20 mg tablet 20 mg PO QDAY Qty: 30 RF: 4 meloxicam 15 mg tablet 15 mg PO QDAY Qty: 90 RF: 3 trazodone 100 mg tablet See Rx Instructions .ROUTE .COMPLEX Qty: 90 RF: 2 sertraline 50 mg tablet 50 mg PO QDAY Qty: 90 RF: 1 Other Ambulatory Orders: Physical Therapy at Discharge - General (Routine) Location: None Selected Ordered By: Shashi Srinivasan Follow Up Plan Follow up with: Clarissa Santillan ARNP [Primary Care Provider] - Patient Disposition: Home, Self-Care Overall status at discharge: patient is progressing back to baseline Discharge Orders: Discharge Order (Routine); Ordered 01/24/21 Ordered By: Shashi Srinivasan QUALITY VTE Deep Vein Thrombosis/Pulmonary Embolism Present on Admission: No
[2021-01-24] MEDS ORDERED: SULFAMETHOXAZOLE/TRIMETHOPRIM 1 TABLET PO SCH (21:00)
--- NOTE | 2021-01-26 10:50 | EKG ---
[facility] Test Date: 2021-01-22 Pat Name: Eliane Santillan Department: ED Room: Gender: Female Compliance Representative Dealer: : 1940 Requested By: Franko Navarro Order Number: [id number] Reading MD: Jerome Murray M.D. Measurements Intervals [place] Rate: 89 P: 43 MI: 163 QRS: 9 QRSD: 69 T: 48 QT: 413 QTc: 503 Interpretive Statements Sinus rhythm Low voltage, precordial leads Anteroseptal infarct, old Prolonged QT interval No prior tracing for comparison. I reviewed and agree with the above findings. Electronically Signed On 01-25-2021 12:01:30 PDT by Jerome Murray M.D. /[facility] [place]/M0/[id number]
== END 2021-01-24 13:25 | disposition home or self-care (01) | DRG 871 ==
LOC: ED 17:58 → MEDSUR 22:45
PROVIDERS: ADMIT Internal Medicine; ATTEND Internal Medicine

== ENCOUNTER 2021-07-24 12:46 | Inpatient (IN) ==
--- NOTE | 2021-07-24 12:51 | Emergency Department Note ---
Fall HPI General Chief Complaint: Fall Stated Complaint: Fall, Rt hip/leg pain Time Seen by Provider: 07/24/21 12:48 Source: patient Mode of arrival: ambulatory Limitations: physical limitation (pain to right hip.) History of Present Illness HPI Narrative: Narrative: Patient is a 80-year-old female that comes into the emergency department today by private vehicle after she had a ground-level fall approximately 45 minutes before arrival to the emergency department. She describes a sharp and throbbing pain to the lateral side of right hip with pain also located at the midshaft of the right femur. Pain is aggravated with weightbearing and ambulation. She indicates that she tripped over something in her garage which caused her to fall. She rates her pain today 8 out of 10 on the 0-10 numerical pain scale. She denies numbness or tingling. She did not hit her head or lose consciousness. She denies any neck pain, chest pain, shortness of breath, or difficulty breathing. Related Data Home Medications Medication Instructions Recorded Confirmed gabapentin 300 mg capsule 300 mg PO BID 07/24/21 07/24/21 lisinopril 10 mg tablet 10 mg PO BID 07/24/21 07/24/21 ofloxacin 0.3 % eye drops 1 drp OPHTHALMIC (EYE) QID 07/24/21 07/24/21 prednisolone acetate (PF) 1 % eye 1 drp OPHTHALMIC (EYE) TID 07/24/21 07/24/21 drops,suspension Previous Rx's Medication Instructions Recorded baclofen 20 mg tablet 20 mg PO BID PRN #180 tab 02/03/21 sertraline 50 mg tablet 50 mg PO QDAY #90 tab 07/12/21 hydrocodone 5 mg-acetaminophen 325 1 tab PO Q4-6H PRN #25 tab 07/19/21 mg tablet trazodone 100 mg tablet See Rx Instructions .ROUTE 07/22/21 .COMPLEX #90 tab Allergies Allergy/AdvReac Type Severity Reaction Status Date / Time No Known Drug Allergies Allergy Verified 07/24/21 13:55 Review of Systems ROS ROS Narrative: Narrative: All systems ED: reviewed and negative except as stated. [facility] Narrative Patient History Narrative: Narrative: Medical/Surgical/Family History All Active Problems (Updated 07/24/21 @ 13:37 by DONALD Hanson) Closed hip fracture (Acute) Failed back syndrome (Acute) Chronic intractable pain (Acute) Radiculopathy, lumbar region (Acute) Depression (Chronic) Radiculopathy, lumbosacral region (Acute) SI (sacroiliac) joint dysfunction (Chronic) Osteoarthritis of both hips (Acute) Skin lesion (Acute) Urinary incontinence (Acute) UTI (urinary tract infection) (Acute) Confusion (Acute) Cognitive and neurobehavioral dysfunction (Acute) Skin lesion (Acute) Sacral back pain (Acute) Nail fungus (Acute) Burn (Acute) Cough (Acute) Neuropathy (Acute) Basal cell adenocarcinoma (Acute) Headache (Acute) PTSD (post-traumatic stress disorder) (Acute) Lumbar pain (Acute) Ingrown nail (Acute) Severe sepsis (Acute) Acute UTI (Acute) Acute delirium (Acute) Constipation (Acute) Low back pain (Acute) History of mammogram (Chronic ~2018) Cervical disc disease (Chronic) Lumbar disc disease (Chronic) Pain in left arm (Chronic) Lymphedema (Chronic) Arthritis (Chronic) Edema of lower extremity (Chronic) Chronic pain syndrome (Chronic) Low back strain (Chronic) 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) Edema of upper extremity (Chronic) Hypertension (Chronic) Medical History (Updated 07/24/21 @ 13:37 by DONALD Hanson) Acute delirium Acute UTI Arthritis Basal cell adenocarcinoma Burn Cervical disc disease Chronic intractable pain Chronic pain syndrome Cognitive and neurobehavioral dysfunction Confusion Constipation Cough Depression Edema of lower extremity Failed back syndrome Headache History of mammogram (~2018) Ingrown nail Low back pain Lumbar disc disease Lumbar pain Lymphedema Nail fungus Neuropathy Osteoarthritis of both hips Pain in left arm PTSD (post-traumatic stress disorder) Radiculopathy, lumbar region Radiculopathy, lumbosacral region Sacral back pain Severe sepsis SI (sacroiliac) joint dysfunction Skin lesion Skin lesion Urinary incontinence UTI (urinary tract infection) Surgical History History of appendectomy History of cholecystectomy (~1981) History of colonoscopy (~2015) History of lumbar fusion Dr. Johnson, 03/23 History of surgery (~1999) left arm repair History of total abdominal hysterectomy (~1979) Family History Mother Hypertension Arthritis Heart disease Social History Smoking Status: Former smoker Alcohol Intake Frequency: holiday/special occasion only Substance Use: does not use Exam Narrative Narrative: Narrative: General Limitations: physical limitation (pain to right hip.) General appearance: Present alert and in no apparent distress Head Head: Present atraumatic and normocephalic Eye Eye: Present normal appearance; Absent scleral icterus ENT ENT: Present normal oropharynx Neck Neck: Present normal inspection and full ROM; Absent tenderness or lymphadenopathy Chest Chest: Present normal inspection and symmetric chest wall rise Respiratory Respiratory: Present normal lung sounds bilaterally; Absent respiratory distress, rales/crackles or accessory muscle use Cardiovascular Cardiovascular: Present regular rate and normal rhythm Extremities Extremities: Present normal inspection, normal capillary refill and other (Tenderness with palpation on the lateral side of right hip and over the entire femur of the right leg. No shortening or internal or external rotation. Normal to inspection. No breaks in the skin. Normal sensation.) Neurological Neurological: Present alert and oriented X3 Psychiatric Psychiatric: Present normal affect and normal mood Skin Skin: Present warm (WNL), dry, intact and normal color; Absent cyanosis or erythema Course Vital Signs Vital signs: Vital Signs Temperature 98.6 F 07/24/21 12:47 Pulse Rate 60 07/24/21 12:47 Respiratory Rate 18 07/24/21 12:47 Blood Pressure 182/104 07/24/21 12:47 Pulse Oximetry (%) 93 07/24/21 12:47 Temperature 98.4 F 07/24/21 15:27 Pulse Rate 79 07/24/21 15:27 Respiratory Rate 16 07/24/21 15:27 Blood Pressure 163/82 07/24/21 15:27 Pulse Oximetry (%) 98 07/24/21 15:27 [facility] MDM Narrative Medical decision making narrative: Narrative: Patient is a 80-year-old female that comes into the emergency department today with right hip pain pain radiating into the right femur area after she had a mechanical ground-level fall today while she was in her garage. She received a femur x-ray and a pelvis x-ray. The findings reveal a fracture of the right femoral neck. Patient did report taking a hydrocodone that she currently was prescribed prior to arrival to the emergency department and her pain has been controlled. Dr. Barr is on-call for orthopedics and I did consult with Dr. Barr. Dr. Barr would like the hospitalist to admit to [facility] and he will plan on doing surgery tomorrow. EKG today shows sinus bradycardia with a rate of 59. No sign of acute coronary syndrome findings on the EKG. I was able to talk with Dr. Mc who is on today as the hospitalist. Dr. Mc plans on admitting patient to [facility] where Dr. Barr will plan on doing surgery tomorrow to fix right hip fracture. Patient received 1 mg of Dilaudid for pain in the emergency department today. Patient's pain was controlled. Her CBC is rather unremarkable. Urinalysis is normal. CMP currently pending. Lab Data Lab results reviewed: Yes I reviewed the patient's lab results. Result diagrams: 07/24/21 13:42 07/24/21 15:10 Labs: Lab Results 07/24/21 07/24/21 07/24/21 Range/Units 13:42 13:42 14:10 WBC 7.5 (4.5-11.0) K/mcL RBC 3.67 (3.59-5.38) M/mcL Hgb 11.4 (11.2-15.7) g/dL Hct 33.8 L (34.1-44.9) % MCV 92.1 (80.0-100.0) fL MCH 31.1 (26.0-34.0) pg MCHC 33.7 (31.0-36.0) g/dL RDW 13.2 (11.5-14.5) % Plt Count 190 (140-440) K/mcL MPV 9.4 (7.4-10.4) fL Neut % (Auto) 69.1 (38.0-78.0) % Lymph % (Auto) 20.9 (15.5-49.0) % [place] % (Auto) 5.2 (1.0-12.0) % Eos % (Auto) 4.3 (0.0-7.0) % Baso % (Auto) 0.5 (0.0-2.0) % Lymph # (Auto) 1.56 (1.50-4.80) K/mcL [place] # (Auto) 0.39 (0.10-0.90) K/mcL Eos # (Auto) 0.32 (0.00-0.70) K/mcL Baso # (Auto) 0.04 (0.00-0.30) K/mcL Absolute Neutrophils 5.16 (1.80-8.00) K/mcL Sodium TNP Potassium TNP Chloride TNP Carbon Dioxide TNP Anion Gap TNP BUN TNP Creatinine TNP GFR Calculation TNP Glucose TNP Calcium TNP Total Bilirubin TNP AST TNP ALT TNP Alkaline Phosphatase TNP Total Protein TNP Albumin TNP Globulin TNP Albumin/Globulin Ratio TNP Urine Color Yellow Urine Appearance Hazy A (Clear) Urine pH 8.0 (5.0-9.0) Ur Specific [place] 1.008 (1.000-1.035) Urine Protein Negative (Negative) mg/dL Urine Glucose (UA) Negative (Negative) mg/dL Urine Ketones Negative (Negative) mg/dL Urine Occult Blood Negative (Negative) mg/dL Urine Nitrate Negative (Negative) Urine Bilirubin Negative (Negative) mg/dL Urine Urobilinogen Negative mg/dL Ur Leukocyte Esterase Negative (Negative) /uL Ur Culture Indicated? No 07/24/21 Range/Units 15:10 WBC (4.5-11.0) K/mcL RBC (3.59-5.38) M/mcL Hgb (11.2-15.7) g/dL Hct (34.1-44.9) % MCV (80.0-100.0) fL MCH (26.0-34.0) pg MCHC (31.0-36.0) g/dL RDW (11.5-14.5) % Plt Count (140-440) K/mcL MPV (7.4-10.4) fL Neut % (Auto) (38.0-78.0) % Lymph % (Auto) (15.5-49.0) % [place] % (Auto) (1.0-12.0) % Eos % (Auto) (0.0-7.0) % Baso % (Auto) (0.0-2.0) % Lymph # (Auto) (1.50-4.80) K/mcL [place] # (Auto) (0.10-0.90) K/mcL Eos # (Auto) (0.00-0.70) K/mcL Baso # (Auto) (0.00-0.30) K/mcL Absolute Neutrophils (1.80-8.00) K/mcL Sodium 137 Potassium 3.1 L Chloride 101 Carbon Dioxide 26 Anion Gap 10.0 BUN 13 Creatinine 0.7 GFR Calculation 82 Glucose 124 H Calcium 9.3 Total Bilirubin 0.4 AST 24 ALT 14 Alkaline Phosphatase 71 Total Protein 6.9 Albumin 4.3 Globulin 2.6 Albumin/Globulin Ratio 1.7 Urine Color Urine Appearance (Clear) Urine pH (5.0-9.0) Ur Specific [place] (1.000-1.035) Urine Protein (Negative) mg/dL Urine Glucose (UA) (Negative) mg/dL Urine Ketones (Negative) mg/dL Urine Occult Blood (Negative) mg/dL Urine Nitrate (Negative) Urine Bilirubin (Negative) mg/dL Urine Urobilinogen mg/dL Ur Leukocyte Esterase (Negative) /uL Ur Culture Indicated? ED POC Tests ED POC Tests: LUIS - SARS Antigen Negative EKG Data EKG #1: EKG attestation: Yes I reviewed and interpreted this EKG. and Yes There are no EKG findings of acute coronary syndrome EKG shows normal: sinus rhythm Rate: bradycardia (Rate 59.) Discharge Plan Patient/Caregiver Discharge Instructions Pt seen by FIELD NURSE/PA only: No Clinical Impression: Closed hip fracture Qualifiers: Encounter type: initial encounter Laterality: right Qualified Code(s): S72.001A - Fracture of unspecified part of neck of right femur, initial encounter for closed fracture Patient Disposition: Xfer As Inpt ([facility]) Discharge Date/Time: 07/24/21 15:20
[2021-07-24 14:13] LABS: Basophils # (Auto) 0.04 K/mcL (0.00-0.30); Basophils % (Auto) 0.5 % (0.0-2.0); Eosinophils # (Auto) 0.32 K/mcL (0.00-0.70); Eosinophils % (Auto) 4.3 % (0.0-7.0); Hematocrit 33.8 % (34.1-44.9); Hemoglobin 11.4 g/dL (11.2-15.7); Lymphocytes # (Auto) 1.56 K/mcL (1.50-4.80); Lymphocytes % (Auto) 20.9 % (15.5-49.0); Mean Cell Volume 92.1 fL (80.0-100.0); Mean Corpuscular HGB Conc 33.7 g/dL (31.0-36.0); Mean Platelet Volume 9.4 fL (7.4-10.4); Monocytes # (Auto) 0.39 K/mcL (0.10-0.90); Monocytes % (Auto) 5.2 % (1.0-12.0); Neutrophils % (Auto) 69.1 % (38.0-78.0); Platelet Count 190 K/mcL (140-440); RBC 3.67 M/mcL (3.59-5.38); Red Cell Distribution Width 13.2 % (11.5-14.5); WBC 7.5 K/mcL (4.5-11.0)
[2021-07-24] MEDS ORDERED: HYDROmorphone 1 MG/ML SYRINGE IV PRN (14:45)
[2021-07-24 15:04] LABS: Appearance,Urine HAZY (Clear); Bilirubin,Urine Negative (Negative); Color,Urine YELLOW; Culture Indicated,Urine No; Glucose,Urine (UA) Negative (Negative); Ketones,Urine Negative (Negative); Leukocyte Esterase,Urine Negative /uL (Negative); Nitrate,Urine Negative (Negative); Protein,Urine Negative (Negative); Specific Gravity,Urine 1.008 (1.000-1.035); Urine Blood Negative (Negative); Urobilinogen,Urine Negative
--- NOTE | 2021-07-24 15:18 | Internal Med History&Physical ---
HPI History of Present Illness Patient information: Note initiated : 07/24/21 at 3:13 pm Service Date, if different from initiated Date: [] Patient: Eliane Santillan a 80 y/o F admitted on for Fall, Rt hip/leg pain. Chief Complaint: [] History of present illness: Ms. Santillan is a 80 year old F with a history of neuropathy/DJD/hypertension/anxiety disorder who presents to the ER along with her Sister Rowena after sustaining a ground-level fall in her garage when she tripped and then landed on her right side. Fortunately she had a yardage control clerk who saw her falling and was able to summon EMS. Initial work-up the ER was consistent with right hip fracture. Orthopedic was consulted and requested admission under hospitalist service. Patient underwent blood work which was unremarkable. At the time of my evaluation patient is alert and oriented. She is able to answer most the question endorse history as above. She denies any precipitating events including lightheadedness dizziness prior to fall and attributes the fall to getting off balance. She denies any prior similar episodes of syncope, lightheadedness dizziness vertigo, recent fever chills, diarrhea, dysuria or changes in medications. Review of systems A 10 point review system was performed and is negative except for ones discussed above PFSH PFSH All Active Problems (Updated 07/24/21 @ 13:37 by DONALD Hanson) Closed hip fracture (Acute) Failed back syndrome (Acute) Chronic intractable pain (Acute) Radiculopathy, lumbar region (Acute) Depression (Chronic) Radiculopathy, lumbosacral region (Acute) SI (sacroiliac) joint dysfunction (Chronic) Osteoarthritis of both hips (Acute) Skin lesion (Acute) Urinary incontinence (Acute) UTI (urinary tract infection) (Acute) Confusion (Acute) Cognitive and neurobehavioral dysfunction (Acute) Skin lesion (Acute) Sacral back pain (Acute) Nail fungus (Acute) Burn (Acute) Cough (Acute) Neuropathy (Acute) Basal cell adenocarcinoma (Acute) Headache (Acute) PTSD (post-traumatic stress disorder) (Acute) Lumbar pain (Acute) Ingrown nail (Acute) Severe sepsis (Acute) Acute UTI (Acute) Acute delirium (Acute) Constipation (Acute) Low back pain (Acute) History of mammogram (Chronic ~2018) Cervical disc disease (Chronic) Lumbar disc disease (Chronic) Pain in left arm (Chronic) Lymphedema (Chronic) Arthritis (Chronic) Edema of lower extremity (Chronic) Chronic pain syndrome (Chronic) Low back strain (Chronic) 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) Edema of upper extremity (Chronic) Hypertension (Chronic) Medical History (Updated 07/24/21 @ 13:37 by DONALD Hanson) Acute delirium Acute UTI Arthritis Basal cell adenocarcinoma Burn Cervical disc disease Chronic intractable pain Chronic pain syndrome Cognitive and neurobehavioral dysfunction Confusion Constipation Cough Depression Edema of lower extremity Failed back syndrome Headache History of mammogram (~2017) Ingrown nail Low back pain Lumbar disc disease Lumbar pain Lymphedema Nail fungus Neuropathy Osteoarthritis of both hips Pain in left arm PTSD (post-traumatic stress disorder) Radiculopathy, lumbar region Radiculopathy, lumbosacral region Sacral back pain Severe sepsis SI (sacroiliac) joint dysfunction Skin lesion Skin lesion Urinary incontinence UTI (urinary tract infection) Surgical History History of appendectomy History of cholecystectomy (~1981) History of colonoscopy (~2015) History of lumbar fusion Dr. Johnson, 03/23 History of surgery (~1999) left arm repair History of total abdominal hysterectomy (~1979) Family History Mother Hypertension Arthritis Heart disease Social History marital status: education level: college occupational status: retired smoking status: Former smoker alcohol intake frequency: holiday/special occasion only substance use type: does not use MEDS/ALLERGIES Home Medications and Allergies Home Medications Medication Instructions Recorded Confirmed Type baclofen 20 mg tablet 20 mg PO BID PRN #180 tab 02/03/21 07/24/21 Rx sertraline 50 mg tablet 50 mg PO QDAY #90 tab 07/12/21 07/24/21 Rx hydrocodone 5 mg-acetaminophen 325 1 tab PO Q4-6H PRN #25 tab 07/19/21 07/24/21 Rx mg tablet trazodone 100 mg tablet See Rx Instructions .ROUTE 07/22/21 07/24/21 Rx .COMPLEX #90 tab gabapentin 300 mg capsule 100 mg PO QID 07/24/21 07/24/21 History lisinopril 20 mg tablet 10 mg PO ONCE 07/24/21 07/24/21 History ofloxacin 0.3 % eye drops 1 drp OPHTHALMIC (EYE) QID 07/24/21 07/24/21 History prednisolone acetate (PF) 1 % eye 1 drp OPHTHALMIC (EYE) TID 07/24/21 07/24/21 History drops,suspension Allergies Allergy/AdvReac Type Severity Reaction Status Date / Time No Known Drug Allergies Allergy Verified 07/24/21 13:55 EXAM Constitutional Vitals: Temp Pulse Resp BP Pulse Ox 98.6 F 75 18 173/151 87 L 07/24/21 12:47 07/24/21 15:05 07/24/21 12:47 07/24/21 15:02 07/24/21 15:05 Head normocephalic Oral cavity moist No ear or nose discharge Eye no subconjunctival pallor, movement symmetrical S1-S2 regular Nonlabored breathing Nondistended nontender abdomen Lower extremity no cyanosis clubbing or joint swelling, right lower extremity shortened and externally rotated, painful passive movement at right hip Skin no suspicious lesion Psych anxious but no hallucination Neuro normal higher function on limited neuro exam, GCS 15 DATA Data Completed and Pending Labs: Labs from last 24 hours 07/24/21 07/24/21 07/24/21 14:10 13:42 13:42 WBC 7.5 RBC 3.67 Hgb 11.4 Hct 33.8 L MCV 92.1 MCH 31.1 MCHC 33.7 RDW 13.2 Plt Count 190 MPV 9.4 Neut % (Auto) 69.1 Lymph % (Auto) 20.9 [place] % (Auto) 5.2 Eos % (Auto) 4.3 Baso % (Auto) 0.5 Lymph # (Auto) 1.56 [place] # (Auto) 0.39 Eos # (Auto) 0.32 Baso # (Auto) 0.04 Absolute Neutrophils 5.16 Sodium TNP Potassium TNP Chloride TNP Carbon Dioxide TNP Anion Gap TNP BUN TNP Creatinine TNP GFR Calculation TNP Glucose TNP Calcium TNP Total Bilirubin TNP AST TNP ALT TNP Alkaline Phosphatase TNP Total Protein TNP Albumin TNP Globulin TNP Albumin/Globulin Ratio TNP Urine Color Yellow Urine Appearance Hazy A Urine pH 8.0 Ur Specific [place] 1.008 Urine Protein Negative Urine Glucose (UA) Negative Urine Ketones Negative Urine Occult Blood Negative Urine Nitrate Negative Urine Bilirubin Negative Urine Urobilinogen Negative Ur Leukocyte Esterase Negative Ur Culture Indicated? No A/P Narrative A/P Narrative: * Right hip fracture-orthopedic consulted, continue pain management, n.p.o. after midnight, crystalloids, inpatient admission * Pain management on as needed opioids * Preoperative risk evaluation- Based on [employer]CR[employer] [place] heart association risk stratification patient would categorically fall under high risk morbidity due to surgery specific risk however patient has a good functional baseline and does not carry history of CVA/CAD/CHF/renal failure or insulin-dependent diabetes. Patient would be a great candidate for postoperative rehab. Risk may include intraoperative and immediate postoperative ACS/CVA, however there are no modifiable risk factors at this time. I recommend maintaining a map greater than 70 during intraoperative phase and use of capnometry and IS to minimize pulmonary compilations. Additionally surgery and anesthesia specific risks will be addressed by respective care providers during their preoperative evaluations. Patient and family expresses understanding of above risks going into surgery. * History of hypertension continue ANNIE inhibitor * Chronic back pain status post stimulator placement. Continue opioid/gabapentin/baclofen * Anxiety disorder continue sertraline, trazodone * Full code * Prophylaxis start heparin post surgery once approved by orthopedics Plan * Inpatient admission * Keep n.p.o. after midnight * Pain management * Pre-existing medical condition management home medications * PT OT nutrition support * Discharge planning per case management Time Spent With Patient Time: Total time spent is greater than 50% in coordination of care (as documented) at patient's floor/unit and/or counseling patient:
[2021-07-24] MEDS ORDERED: ONDANSETRON 4 MG/2 ML VIAL IV PRN (15:27)
[2021-07-24] MEDS ORDERED: hydrALAZINE 20 MG/ML VIAL IV PRN (15:27)
[2021-07-24] MEDS ORDERED: HYDROcodone/APAP (PP) 5/325MG TABLET (#4) PO PRN (15:27)
[2021-07-24] MEDS ORDERED: ACETAMINOPHEN 650 MG/65 ML BAG IV PRN (15:27)
[2021-07-24] MEDS ORDERED: MAGNESIUM SULFATE 2 GM/50 ML BAG IV PRN (15:27)
[2021-07-24] MEDS ORDERED: POLYETHYLENE GLYCOL 3350 17 GM PACKET PO PRN (15:27)
[2021-07-24] MEDS ORDERED: ACETAMINOPHEN 325 MG TABLET PO PRN (15:27)
[2021-07-24] MEDS ORDERED: ONDANSETRON 4 MG ODT TABLET SL PRN (15:27)
[2021-07-24] MEDS ORDERED: POTASSIUM CHLORIDE 40 MEQ in DEXTROSE 5% IN WATER 500 ML IV PRN (15:27)
[2021-07-24] MEDS ORDERED: BISACODYL 10 MG SUPP.RECT PR PRN (15:27)
[2021-07-24] MEDS ORDERED: METOPROLOL TARTRATE 5 MG/5 ML VIAL IV PRN (15:27)
[2021-07-24] MEDS ORDERED: MELATONIN 3 MG TABLET PO PRN (15:27)
[2021-07-24] MEDS ORDERED: POTASSIUM CHLORIDE 20 MEQ PACKET PO PRN (15:27)
[2021-07-24] MEDS ORDERED: HYDROcodone/APAP 5/325MG TABLET PO PRN (15:35)
[2021-07-24] MEDS: 0.9 % SODIUM CHLORIDE 1,000 ML IV SCH (16:04)
[2021-07-24 16:05] LABS: ALT/SGPT 14 U/L (<40); AST/SGOT 24 U/L (<32); Albumin 4.3 gm/dL (3.2-5.2); Albumin/Globulin Ratio 1.7 (1.0-2.3); Alkaline Phosphatase 71 U/L (39-117); Bilirubin,Total 0.4 mg/dL (0.1-1.0); Blood Urea Nitrogen 13 mg/dL (8-23); Calcium 9.3 mg/dL (8.6-10.4); Carbon Dioxide 26 mmol/L (22-30); Chloride 101 mmol/L (96-108); Globulin 2.6 gm/dL (2.2-3.7); Glomerular Filtration Rate 82; Glucose 124 mg/dL (70-105)
--- NOTE | 2021-07-24 16:20 | XRay Report ---
CLINICAL INFORMATION: Pain COMPARISON: 01/10/2020. FINDINGS: Moderate left and mild right hip degeneration show slight progression. Mild bilateral SI joint degeneration is stable. Interval L4-5 anterior/posterior fusion has been performed. Severe L5-S1 degenerative disc disease seen. There is no fracture or other osseous abnormalities. Soft tissues normal. IMPRESSION: No fracture or other osseous abnormality. Moderate left and mild right hip degeneration progressing. Interpreted and Authenticated by: Koffi Looney 07/24/21
--- NOTE | 2021-07-24 16:27 | XRay Report ---
CLINICAL INFORMATION: Trauma COMPARISON: None FINDINGS: Probable subtle impaction fracture of the superior right femoral head neck junction appreciated. Fracture line is not seen.. Moderate patellofemoral and tibiofemoral degenerative change noted. Mild right hip degenerative change also noted.. Soft tissues are unremarkable. IMPRESSION: Probable subcapital fracture right hip. Suggest pelvic CT. Degenerative change Interpreted and Authenticated by: Koffi Looney 07/24/21
--- NOTE | 2021-07-24 16:30 | XRay Report ---
CLINICAL INFORMATION: Trauma COMPARISON: 06/03/2021 TECHNIQUE: PA and Lateral views FINDINGS: The heart size, mediastinum and pulmonary vessels are unremarkable. The lungs are clear. There are no effusions. The bones and soft tissues are within normal limits. IMPRESSION: Normal chest. Interpreted and Authenticated by: Koffi Looney 07/24/21
[2021-07-24] MEDS: OFLOXACIN 0.3% OU SCH ×2 (16:49→21:04)
[2021-07-24] MEDS: HYDROmorphone 0.5 MG/0.5 ML SYRINGE IV PRN (19:26)
[2021-07-24] MEDS: SENNOSIDES/DOCUSATE SODIUM 1 TAB TABLET PO SCH (21:03)
[2021-07-24] MEDS: DOCUSATE SODIUM 100 MG CAPSULE PO SCH (21:03)
[2021-07-24] MEDS: LISINOPRIL 10 MG TABLET PO SCH (21:03)
[2021-07-24] MEDS: GABAPENTIN 300 MG CAPSULE PO SCH (21:03)
[2021-07-24] MEDS: prednisoLONE 1% OPHTH DROPS 1ML BOTTLE OU SCH (21:04)
[2021-07-24] MEDS: 0.9 % SODIUM CHLORIDE 10 ML SYRINGE IV SCH (21:05)
[2021-07-24] MEDS: traZODone HCL 100 MG TABLET PO PRN (21:15)
[2021-07-24] MEDS: BACLOFEN 10 MG TABLET PO PRN (21:15)
[2021-07-25] MEDS: HYDROmorphone 0.5 MG/0.5 ML SYRINGE IV PRN ×2 (03:33→08:25)
[2021-07-25] MEDS: 0.9 % SODIUM CHLORIDE 10 ML SYRINGE IV SCH ×3 (05:14→20:48)
--- NOTE | 2021-07-25 05:25 | Cat Scan Report ---
CLINICAL INFORMATION: Trauma-with right hip pain COMPARISON: Abdomen and pelvic CT 03/14/2017. TECHNIQUE: 0.625 mm helical slices were obtained from the mid L4 through the subtrochanteric regions. Following reconstruction, 2.5 mm sagittal, coronal and axial reformations were processed. The exam was reviewed in bone and soft tissue windows. The exam was performed using radiation dose optimization techniques including, but not limited to, automated exposure control, adjustment of mA and/or kV according to patient size and use of iterative reconstruction technique. FINDINGS: Acute nondisplaced subcapital fracture of the right hip is appreciated with mild impaction superiorly. No other osseous abnormalities. The SI and hip joints are normal in width and alignment without arthritic change.. At L3-4 and L4-5 anterior/posterior fusion and wide laminectomy changes again noted. Moderate postsurgical granulation tissue seen in the posterior epidural space region. L5-S1 mild broad disc were complex results in moderate bilateral IV foraminal narrowing with impingement of the exiting L5 nerve roots. Myers catheter is properly positioned within the urinary bladder which is decompressed. Hysterectomy changes noted. 12 cm cyst in the right ovary is unchanged from previous exam. Sigmoid diverticulosis, as previously seen, but no evidence of diverticulitis. The remaining visualized large and small bowel are normal. 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 This contains only mesenteric fat. It is unchanged. IMPRESSION: 1. Nondisplaced acute subcapital fracture-right hip. 2. 12 mm simple cyst right ovary stable. 3. 8 x 3 cm broad mouth hernia right mid abdomen containing only mesenteric fat-stable. 4. Sigmoid diverticulosis but no diverticulitis Interpreted and Authenticated by: Koffi Looney 07/25/21
[2021-07-25 07:38] LABS: Basophils # (Auto) 0.02 K/mcL (0.00-0.30); Basophils % (Auto) 0.3 % (0.0-2.0); Eosinophils # (Auto) 0.27 K/mcL (0.00-0.70); Hematocrit 34.5 % (34.1-44.9); Hemoglobin 10.1 g/dL (11.2-15.7); Lymphocytes # (Auto) 1.34 K/mcL (1.50-4.80); Lymphocytes % (Auto) 20.1 % (15.5-49.0); Mean Cell Volume 103.3 fL (80.0-100.0); Mean Corpuscular HGB Conc 29.3 g/dL (31.0-36.0); Mean Platelet Volume 9.1 fL (7.4-10.4); Monocytes # (Auto) 0.45 K/mcL (0.10-0.90); Monocytes % (Auto) 6.7 % (1.0-12.0); Neutrophils % (Auto) 68.9 % (38.0-78.0); Platelet Count 148 K/mcL (140-440); RBC 3.34 M/mcL (3.59-5.38); Red Cell Distribution Width 13.2 % (11.5-14.5); WBC 6.7 K/mcL (4.5-11.0)
[2021-07-25 07:52] LABS: ALT/SGPT 10 U/L (<40); AST/SGOT 16 U/L (<32); Albumin 3.5 gm/dL (3.2-5.2); Albumin/Globulin Ratio 1.6 (1.0-2.3); Alkaline Phosphatase 60 U/L (39-117); Bilirubin,Direct < 0.2 mg/dL (0-0.3); Bilirubin,Total 0.6 mg/dL (0.1-1.0); Blood Urea Nitrogen 13 mg/dL (8-23); Calcium 8.5 mg/dL (8.6-10.4); Carbon Dioxide 27 mmol/L (22-30); Chloride 103 mmol/L (96-108); Globulin 2.2 gm/dL (2.2-3.7); Glomerular Filtration Rate 82; Glucose 95 mg/dL (70-105); Lactate Dehydrogenase 206 U/L (135-225); Phosphorous 3.2 mg/dL (2.5-4.5); Triglycerides 178 mg/dL (<150); Uric Acid 3.5 mg/dL (2.5-8.0)
[2021-07-25] MEDS: SERTRALINE 50 MG TABLET PO SCH (08:12)
[2021-07-25] MEDS: GABAPENTIN 300 MG CAPSULE PO SCH ×2 (08:12→20:45)
[2021-07-25] MEDS: LISINOPRIL 10 MG TABLET PO SCH ×2 (08:12→20:45)
[2021-07-25] MEDS: DOCUSATE SODIUM 100 MG CAPSULE PO SCH ×2 (08:22→20:45)
[2021-07-25] MEDS: prednisoLONE 1% OPHTH DROPS 1ML BOTTLE OU SCH ×3 (08:22→20:47)
[2021-07-25] MEDS: OFLOXACIN 0.3% OU SCH ×4 (08:22→20:47)
[2021-07-25] MEDS ORDERED: SCOPOLAMINE 1 PATCH PATCH TOPICAL PRN (09:00)
[2021-07-25] MEDS ORDERED: IPRATROPIUM/ALBUTEROL 3 ML AMPUL.NEB NEB PRN ×2 (09:00→10:49)
[2021-07-25] MEDS ORDERED: ceFAZolin 2 GM in DEXTROSE 5% IN WATER 50 ML IV SCH ×2 (09:45→11:00)
--- NOTE | 2021-07-25 09:55 | Internal Med Progress Note ---
SUBJECTIVE Subjective Patient information: Note initiated : 07/25/21 at 8:12 am Service Date, if different from initiated Date: [] Patient: Eliane Santillan a 80 y/o F admitted on for Fall, Rt hip/leg pain. Chief Complaint: [] Interval history: Ms. Santillan is a 80 year old F with a history of neuropathy/DJD/hypertension/anxiety disorder who presents to the ER along with her Sister Rowena after sustaining a ground-level fall in her garage when she tri pped and then landed on her right side. Fortunately she had a woodyard operator who saw her falling and was able to summon EMS. Initial work-up the ER was consistent with right hip fracture. Orthopedic was consulted and requested admission under hospitalist service. Patient underwent blood work which was unremarkable. At the time of my evaluation patient is alert and oriented. She is able to answer most the question endorse history as above. She denies any precipitating events including lightheadedness dizziness prior to fall and attributes the fall to getting off balance. She denies any prior similar episodes of syncope, lightheadedness dizziness vertigo, recent fever chills, diarrhea, dysuria or changes in medications. 07/25-patient doing well. Will undergo operative intervention today. Will review postop. No overnight events eluding fever chills or recent concerns per nursing staff. Stable labs and hemodynamics. White count 6.7, potassium improved to 4 from 3.1 with replacement, creatinine 0.7 . Constitutional Vitals: Vital Signs Temp Pulse Resp BP Pulse Ox 98.6 F 75 18 173/151 87 L 07/24/21 12:47 07/24/21 15:05 07/24/21 12:47 07/24/21 15:02 07/24/21 15:05 Period Temp Pulse Resp BP Sys/Esteves Pulse Ox Last 24 Hr 98.6 F 60-75 18 173-206/77-151 87-94 Intake and Output 07/24/21 07/24/21 07/24/21 05:59 13:59 21:59 Weight 67.132 kg Patient Weight 07/25/21 05:59 Weight 67.132 kg Alert oriented Nonlabored breathing Minimal discomfort fracture site Intake & Output: Intake & Output 07/24/21 07/24/21 07/24/21 05:59 13:59 21:59 Weight 67.132 kg Other: Urine Appearance Uretheral (Myers) Clear Urine Color Uretheral (Myers) Pale OBJ DATA Labs CBC & Chem 7: 07/25/21 06:22 07/25/21 06:22 Labs: Abnormal Lab Results 07/24/21 07/24/21 14:10 13:42 Hct 33.8 L Urine Appearance Hazy A Meds: Medications Hydromorphone HCl (Hydromorphone 1 Mg/Ml Syringe) 1 mg IV Q1HP PRN; Protocol PRN Reason: Per Pain Protocol Last Admin: 07/24/21 15:03 Dose: 1 mg Documented by: A/P Narrative A/P Narrative: A/P Narrative: * Right hip fracture-operative intervention today. Will review postop. Managed per orthopedics * Pain management on as needed opioids * History of hypertension continue ANNIE inhibitor post surgery * Chronic back pain status post stimulator placement. Continue opioid/gabapentin/baclofen * Anxiety disorder continue sertraline, trazodone * Full code * DVT prophylaxis will be as per orthopedics Plan * Review postop * Postop care/pain management/DVT prophylaxis per orthopedics * Pre-existing medical condition management home medications * PT OT nutrition support * Discharge planning per case management Time Spent With Patient Time: Total time spent is greater than 50% in coordination of care (as documented) at patient's floor/unit and/or counseling patient: Total time spent with greater than 50% in coordination of care (as documented) at patient's floor/unit and/or counseling patient:: Greater than 35 minutes
[2021-07-25] MEDS ORDERED: KETAMINE 50 MG/ML Syringe (ANEST) IV ONE (10:09)
[2021-07-25] MEDS ORDERED: MAGNESIUM SULFATE 2 GM/50 ML BAG IV ONE (10:09)
[2021-07-25] MEDS ORDERED: ONDANSETRON 4 MG/2 ML VIAL ONE (10:09)
[2021-07-25] MEDS ORDERED: PROPOFOL 200 MG/20 ML VIAL IV ONE (10:09)
[2021-07-25] MEDS ORDERED: LIDOCAINE HCL/PF 100 MG/5 ML SYRINGE IV ONE (10:09)
[2021-07-25] MEDS ORDERED: DEXAMETHASONE 10 MG/ML VIAL ONE (10:09)
[2021-07-25] MEDS ORDERED: BENZOCAINE/MENTHOL 1 LOZENGE PO PRN (10:10)
[2021-07-25] MEDS ORDERED: MAGNESIUM HYDROXIDE 30 ML ORAL.SUSP PO PRN (10:10)
[2021-07-25] MEDS ORDERED: METHOCARBAMOL 1,000 MG/10 ML VIAL IV PRN (10:49)
[2021-07-25] MEDS ORDERED: diphenhydrAMINE 50 MG/ML VIAL IV PRN (10:49)
[2021-07-25] MEDS ORDERED: ACETAMINOPHEN 1,000 MG/100 ML BAG IV ONE (10:49)
[2021-07-25] MEDS ORDERED: LACTATED RINGERS 250 ML IV PRN (10:49)
[2021-07-25] MEDS ORDERED: NALOXONE HCL 0.4 MG/ML VIAL IV PRN (10:49)
[2021-07-25] MEDS ORDERED: MEPERIDINE 25 MG/ML VIAL IV PRN (10:49)
[2021-07-25] MEDS ORDERED: fentaNYL 100 MCG/2 ML VIAL IV PRN (10:49)
[2021-07-25] MEDS ORDERED: PROMETHAZINE 25 MG/ML VIAL IV PRN (10:49)
[2021-07-25] MEDS ORDERED: ONDANSETRON 4 MG/2 ML VIAL IV PRN (10:49)
[2021-07-25] MEDS ORDERED: morphine 4 MG/ML VIAL IV PRN (10:53)
[2021-07-25] MEDS ORDERED: LACTATED RINGERS 1,000 ML IV SCH (11:00)
--- NOTE | 2021-07-25 11:06 | Discharge Plan ---
Discharge Plan Patient/Caregiver Discharge Instructions Activity: increase activity as tolerated Diet: Regular Diet Prescriptions: New hydrocodone-acetaminophen 7.5-325 mg tablet 1 tab PO Q4H PRN (Reason: pain) Qty: 60 0RF aspirin 81 mg tablet,chewable 81 mg PO BID Qty: 60 0RF No Action baclofen 20 mg tablet 20 mg PO BID PRN (Reason: pain) Qty: 180 3RF sertraline 50 mg tablet 50 mg PO QDAY Qty: 90 1RF trazodone 100 mg tablet See Rx Instructions .ROUTE .COMPLEX Qty: 90 2RF Dose Instruction: TAKE 1 TABLET BY MOUTH ONCE DAILY AT BEDTIME NEEDED FOR INSOMNIA Rx Instructions: TAKE 1 TABLET BY MOUTH ONCE DAILY AT BEDTIME NEEDED FOR INSOMNIA hydrocodone-acetaminophen 5-325 mg tablet 1 tab PO Q4-6H PRN (Reason: pain) Qty: 25 0RF Rx Instructions: Take 1-2 tabs PO PRN pain gabapentin 300 mg capsule 300 mg PO BID 0RF lisinopril 10 mg tablet 10 mg PO BID 0RF Systane Nighttime 1 drp ophthalmic (eye) HS 0RF Systane (PF) 1 drp ophthalmic (eye) DAILY 0RF Follow Up Plan Follow up with: Clarissa Santillan ARNP [Primary Care Provider] - Jaylan Barr MD [Physician] - Patient Disposition: Home, Self-Care Discharge Orders: Discharge Order (Routine); Ordered 07/28/21 Ordered By: Jaylan Barr
--- NOTE | 2021-07-25 11:20 | Operative Note ---
Operative Note Operative Note: Pre-operative diagnosis: Right subcapital hip fracture Postoperative diagnosis: Same Procedure: Right hip cannulated screw fixation Implants: 3 Synthes 7.3 mm cannulated screws, 85 mm short thread, to 80 mm long thread Findings: As above diagnosis obviously impacted minimally displaced subcapital fracture Complications: None Estimated Blood loss: 10 cc Assist: Gerardo Gibbs's assistance was critical to the safety and efficacy of the procedure DOS: July 25 2021 Clinical note: The patient continues to suffer from the above mentioned diagnosis. She had a fall recently and had pain in her right hip. She was unable to ambulate. X-rays were taken which showed a subcapital hip fracture. There was some question by radiology whether in fact there was a true fracture and therefore a CT scan of the pelvis was ordered. This did confirm the minimally displaced obviously impacted right hip femoral neck fracture. Fixation in the form of cannulated screws was offered to the patient with the goal of allowing her to ambulate more rapidly. Patient agreed to the procedure where an understanding of the risk. H&P: The patient was met outside the operating room and symptoms were reviewed and a physical exam performed. The patient demonstrated ongoing symptoms and signs as previously discussed. Risk versus benefits of the procedure were again discussed. Patient wished to proceed with the surgery aware and understanding of these risks. The operative site was marked. The patient was brought to the operating room prepped and draped in usual fashion supine on traction table. All bony prominences were padded. The well leg was placed in the well-leg camara. We began with a small 2 to 3 cm incision on the lateral femur in line with the femoral neck. One guidewire was inserted through the femoral shaft into the femoral head along the center of the inferior aspect of the femoral neck. 2 more guidewires were then inserted through the lateral femoral cortex into the femoral head along the anterior superior and posterior superior border of the neck, in the standard inverted triangle construct. The guidewires were then measured. An opening drill was used to ream over top of the wires to open the lateral cortex. The screws of size above were then inserted. The first 2 screws were 16mm partially-threaded to allow some compression across the fracture site. The final screw had only 32 mm of threading which was inserted in the posterior superior aspect to provide further stability. The screws were advanced until the heads was down onto the lateral cortex. Final fluoroscopy views were used to confirm the fracture remained only minimally displaced and valgus, and the screws were in appropriate position and length. The wound was then irrigated with copious amounts normal saline. Fascia was closed with a heavy Vicryl suture followed by Monocryl and jimi for the skin. Sterile dressing was applied. The patient was brought to PACU in good condition. Patient can be weightbearing as tolerated and can be discharged home as per hospital team when stable and pain controlled to follow-up with orthopedics in 2 weeks time.
[2021-07-25] MEDS: LACTATED RINGERS 1,000 ML IV SCH ×2 (11:44→23:24)
[2021-07-25] MEDS: 0.9 % SODIUM CHLORIDE 1,000 ML IV SCH (12:09)
--- NOTE | 2021-07-25 12:44 | XRay Report ---
CLINICAL INFORMATION: ORIF right subcapital fracture COMPARISON: Preoperative plain film 07/24/2021 FINDINGS: Subcapital fracture is transfixed by three screws. Alignment is near-anatomic. No other osseous abnormality. SI and hip joints are normal with alignment without arthritic change. Severe L5-S1 degenerative disc noted. IMPRESSION: ORIF subcapital fracture right hip near-anatomic alignment. Interpreted and Authenticated by: Koffi Looney 07/25/21
--- NOTE | 2021-07-25 12:54 | XRay Report ---
CLINICAL INFORMATION: ORIF subcapital fracture right hip COMPARISON: None. FINDINGS: Digital images from the OR show reduction in subcapital fracture right hip two anatomic alignment and transfixation by three screws. The right hip is normal in width and alignment... Total fluoroscopy time 0.7 minutes. IMPRESSION: ORIF subcapital fracture right hip. Total fluoroscopy time 0.7 minutes. Interpreted and Authenticated by: Koffi Looney 07/25/21
[2021-07-25] MEDS: ceFAZolin 1 GM VIAL IV SCH (17:12)
[2021-07-25] MEDS: HYDROCODONE/APAP 7.5/325MG TABLET PO PRN ×2 (17:13→20:45)
[2021-07-25] MEDS: BACLOFEN 10 MG TABLET PO PRN (20:45)
[2021-07-25] MEDS: SENNOSIDES/DOCUSATE SODIUM 1 TAB TABLET PO SCH (20:45)
[2021-07-25] MEDS: traZODone HCL 100 MG TABLET PO PRN (20:45)
[2021-07-25] MEDS: HEPARIN 5,000 UNIT/ML VIAL SQ SCH (20:46)
[2021-07-26] MEDS: ceFAZolin 1 GM VIAL IV SCH (01:39)
[2021-07-26] MEDS: HYDROCODONE/APAP 7.5/325MG TABLET PO PRN ×4 (01:40→21:31)
[2021-07-26] MEDS: 0.9 % SODIUM CHLORIDE 10 ML SYRINGE IV SCH ×3 (06:02→21:34)
[2021-07-26 07:00] LABS: Basophils # (Auto) 0 K/mcL (0.00-0.30); Basophils % (Auto) 0 % (0.0-2.0); Eosinophils # (Auto) 0.11 K/mcL (0.00-0.70); Eosinophils % (Auto) 1.3 % (0.0-7.0); Hematocrit 27.6 % (34.1-44.9); Hemoglobin 9.2 g/dL (11.2-15.7); Lymphocytes # (Auto) 0.91 K/mcL (1.50-4.80); Lymphocytes % (Auto) 10.8 % (15.5-49.0); Mean Cell Volume 92.9 fL (80.0-100.0); Mean Corpuscular HGB Conc 33.3 g/dL (31.0-36.0); Mean Platelet Volume 9.7 fL (7.4-10.4); Monocytes # (Auto) 0.51 K/mcL (0.10-0.90); Neutrophils % (Auto) 81.9 % (38.0-78.0); Platelet Count 148 K/mcL (140-440); RBC 2.97 M/mcL (3.59-5.38); Red Cell Distribution Width 12.7 % (11.5-14.5); WBC 8.5 K/mcL (4.5-11.0)
[2021-07-26 07:41] LABS: ALT/SGPT 12 U/L (<40); AST/SGOT 19 U/L (<32); Albumin 3.4 gm/dL (3.2-5.2); Albumin/Globulin Ratio 1.7 (1.0-2.3); Alkaline Phosphatase 59 U/L (39-117); Bilirubin,Direct < 0.2 mg/dL (0-0.3); Bilirubin,Total 0.2 mg/dL (0.1-1.0); Blood Urea Nitrogen 12 mg/dL (8-23); Calcium 8.4 mg/dL (8.6-10.4); Carbon Dioxide 25 mmol/L (22-30); Chloride 103 mmol/L (96-108); Glomerular Filtration Rate 87; Glucose 120 mg/dL (70-105); Lactate Dehydrogenase 192 U/L (135-225); Phosphorous 2.9 mg/dL (2.5-4.5); Triglycerides 122 mg/dL (<150); Uric Acid 2.5 mg/dL (2.5-8.0)
[2021-07-26 07:55] LABS: Prothrombin Time 13.8 sec (11.9-14.5)
[2021-07-26] MEDS: LISINOPRIL 10 MG TABLET PO SCH ×2 (08:39→21:32)
[2021-07-26] MEDS: DOCUSATE SODIUM 100 MG CAPSULE PO SCH ×2 (08:39→21:32)
[2021-07-26] MEDS: SERTRALINE 50 MG TABLET PO SCH (08:39)
[2021-07-26] MEDS: GABAPENTIN 300 MG CAPSULE PO SCH ×2 (08:39→21:31)
[2021-07-26] MEDS: OFLOXACIN 0.3% OU SCH ×4 (08:53→20:23)
[2021-07-26] MEDS: prednisoLONE 1% OPHTH DROPS 1ML BOTTLE OU SCH ×3 (08:53→20:23)
[2021-07-26] MEDS: HEPARIN 5,000 UNIT/ML VIAL SQ SCH ×2 (08:53→21:32)
[2021-07-26] MEDS: 0.9 % SODIUM CHLORIDE 1,000 ML IV SCH (10:24)
--- NOTE | 2021-07-26 11:54 | Internal Med Progress Note ---
SUBJECTIVE Subjective Patient information: Note initiated : 07/26/21 at 11:51 am Service Date, if different from initiated Date: [] Patient: Eliane Santillan a 80 y/o F admitted on 07/24/21 for Fall, Rt hip/leg pain. Chief Complaint: [] Interval history: Ms. Santillan is a 80 year old F with a history of neuropathy/DJD/hypertension/anxiety disorder who presents to the ER along with her Sister Rowena after sustaining a ground-level fall in her garage when she tripped and then landed on her right side. Fortunately she had a yard jacker who saw her falling and was able to summon EMS. Initial work-up the ER was consistent with right hip fracture. Orthopedic was consulted and requested admission under hospitalist service. Patient underwent blood work which was unremarkable. At the time of my evaluation patient is alert and oriented. She is able to answer most the question endorse history as above. She denies any precipitating events including lightheadedness dizziness prior to fall and attributes the fall to getting off balance. She denies any prior similar episodes of syncope, lightheadedness dizziness vertigo, recent fever chills, diarrhea, dysuria or changes in medications. 07/25-patient doing well. Will undergo operative intervention today. Will review postop. No overnight events eluding fever chills or recent concerns per nursing staff. Stable labs and hemodynamics. White count 6.7, potassium improved to 4 from 3.1 with replacement, creatinine 0.7 . 07/26 patient doing well. Stable hemodynamics, hemoglobin 9.2, no significant postop pain. Ongoing physical therapy. Denies fever chills nausea. Tolerating diet. No additional concerns expressed by nursing staff. Constitutional Vitals: Vital Signs Temp Pulse Resp BP Pulse Ox 97.4 F 65 20 143/73 93 07/26/21 07:00 07/26/21 07:00 07/26/21 07:00 07/26/21 07:00 07/26/21 07:00 Period Temp Pulse Resp BP Sys/Esteves Pulse Ox Last 24 Hr 96.5 F-98.0 F 59-79 12-20 131-166/65-77 93-96 Intake and Output 07/25/21 07/26/21 07/26/21 21:59 05:59 13:59 Intake Total 076 217 0863 Output Total 650 600 300 Balance -60 0 1700 Weight 68.629 kg alert oriented Nonlabored breathing No anxiety No lymphedema Intake & Output: Intake & Output 07/25/21 07/26/21 07/26/21 21:59 05:59 13:59 Intake Total 807 165 0216 Output Total 650 600 300 Balance -60 0 1700 Weight 68.629 kg Intake: IV 2000 Sodium Chloride 0.9% 1,000 ml @ 1000 50 mls/hr IV .Q20H [facility] Rx#: [id number] Lactated Ringers 1,000 ml @ 75 1000 mls/hr IV .[id number] [facility] Rx#: [id number] Oral 590 600 Output: Urine Catheter Amount 650 600 300 Other: Meal Dinner Percent of Meal Consumed 100% Feeding Ability Independent Urine Appearance Clear Clear Clear Uretheral (Myers) Clear Urine Color Bright Yellow Bright Yellow Bright Yellow Uretheral (Myers) Bright Yellow Urine Odor Normal Normal OBJ DATA Labs CBC & Chem 7: 07/26/21 05:36 07/26/21 05:36 Labs: Abnormal Lab Results 07/26/21 07/26/21 07/25/21 05:36 05:36 06:22 RBC 2.97 L Hgb 9.2 L Hct 27.6 L MCV MCHC Neut % (Auto) 81.9 H Lymph % (Auto) 10.8 L Lymph # (Auto) 0.91 L Potassium Glucose 120 H Calcium 8.4 L 8.5 L Total Protein 5.4 L 5.7 L Globulin 2.0 L Triglycerides 178 H Urine Appearance 07/25/21 07/24/21 07/24/21 06:22 15:10 14:10 RBC 3.34 L Hgb 10.1 L Hct MCV 103.3 H MCHC 29.3 L Neut % (Auto) Lymph % (Auto) Lymph # (Auto) 1.34 L Potassium 3.1 L Glucose 124 H Calcium Total Protein Globulin Triglycerides Urine Appearance Hazy A 07/24/21 13:42 RBC Hgb Hct 33.8 L MCV MCHC Neut % (Auto) Lymph % (Auto) Lymph # (Auto) Potassium Glucose Calcium Total Protein Globulin Triglycerides Urine Appearance Meds: Medications Acetaminophen (Acetaminophen 325 Mg Tablet) 650 mg PO Q4-6HP PRN; Protocol PRN Reason: Per Pain Protocol/Fever > 101 Hydrocodone Bitart/Acetaminophen (Hydrocodone/Apap 7.5/325mg Tablet) 0 tab PO Q4HP PRN; Protocol PRN Reason: Per Pain Protocol Last Admin: 07/26/21 07:16 Dose: 1 tab Documented by: Baclofen (Baclofen 10 Mg Tablet) 20 mg PO BIDP PRN PRN Reason: pain Last Admin: 07/25/21 20:45 Dose: 20 mg Documented by: Bisacodyl (Bisacodyl 10 Mg Supp.Rect) 10 mg ME Q2-3DAYS PRN PRN Reason: Constipation Docusate Sodium (Docusate Sodium 100 Mg Capsule) 100 mg PO BID [facility] Last Admin: 07/26/21 08:39 Dose: 100 mg Documented by: Gabapentin (Gabapentin 300 Mg Capsule) 300 mg PO BID [facility] Last Admin: 07/26/21 08:39 Dose: 300 mg Documented by: Heparin Sodium (Porcine) (Heparin 5,000 Unit/Ml Vial) 5,000 unit SQ Q12 [facility] Last Admin: 07/26/21 08:53 Dose: Not Given Documented by: Hydralazine HCl (Hydralazine 20 Mg/Ml Vial) 10 mg IV Q4-6HP PRN PRN Reason: Hypertension Potassium Chloride 40 meq/ (Dextrose) 520 mls @ 130 mls/hr IV UD PRN PRN Reason: K+ = or < 3.5 Acetaminophen (Ofirmev) 650 mg in 65 mls @ 130 mls/hr IV Q6HP PRN; Protocol PRN Reason: Per Pain Protocol/Fever > 101 Magnesium Sulfate (Magnesium Sulfate) 2 gm in 50 mls @ 50 mls/hr IV UD PRN PRN Reason: MG = or < 1.7 Lactated Ringer's (Lactated Ringers) 1,000 mls @ 75 mls/hr IV .[id number] [facility] Last Infusion: 07/26/21 06:34 Dose: Infused Documented by: Lisinopril (Lisinopril 10 Mg Tablet) 10 mg PO BID [facility] Last Admin: 07/26/21 08:39 Dose: 10 mg Documented by: Magnesium Hydroxide (Magnesium Hydroxide 30 Ml Oral.Susp) 30 ml PO BIDP PRN PRN Reason: Constipation Melatonin (Melatonin 3 Mg Tablet) 3 mg PO HSP PRN PRN Reason: Insomnia Metoprolol Tartrate (Metoprolol Tartrate 5 Mg/5 Ml Vial) 5 mg IV Q5M PRN PRN Reason: Heart Rate > 140 bpm Morphine Sulfate (Morphine 4 Mg/Ml Vial) 0 mg IV Q1HP PRN; Protocol PRN Reason: Per Pain Protocol Ondansetron HCl (Ondansetron 4 Mg Odt Tablet) 4 mg SL Q4-6HP PRN; Protocol PRN Reason: Nausea And Vomiting Ondansetron HCl (Ondansetron 4 Mg/2 Ml Vial) 4 mg IV Q4-6HP PRN; Protocol PRN Reason: Nausea And Vomiting Ofloxacin 0.3 % (Ophthalmic Drops) 1 dose OU QID [facility] Last Admin: 07/26/21 11:01 Dose: Not Given Documented by: Polyethylene Glycol (Polyethylene Glycol 3350 17 Gm Packet) 17 gm PO DAILYP PRN PRN Reason: Constipation Potassium Chloride (Potassium Chloride 20 Meq Packet) 40 meq PO DAILYP PRN PRN Reason: K+ < 3.5 Last Admin: 07/24/21 21:04 Dose: 40 meq Documented by: Prednisolone Acetate (Prednisolone 1% Ophth Drops 1ml Bottle) 1 gtt OU TID [facility] Last Admin: 07/26/21 08:53 Dose: Not Given Documented by: Senna/Docusate Sodium (Sennosides/Docusate Sodium 1 Tab Tablet) 1 tab PO HS [facility] Last Admin: 07/25/21 20:45 Dose: 1 tab Documented by: Sertraline HCl (Sertraline 50 Mg Tablet) 50 mg PO QDAY [facility] Last Admin: 07/26/21 08:39 Dose: 50 mg Documented by: Sodium Chloride (0.9 % Sodium Chloride 10 Ml Syringe) 10 ml IV Q8 [facility] Last Admin: 07/26/21 06:02 Dose: Not Given Documented by: Throat Lozenges (Benzocaine/Menthol 1 Lozenge) 1 lozenge PO PRN PRN PRN Reason: Sore Throat Trazodone HCl (Trazodone Hcl 100 Mg Tablet) 100 mg PO HSP PRN PRN Reason: Insomnia Last Admin: 07/25/21 20:45 Dose: 100 mg Documented by: A/P Narrative A/P Narrative: A/P Narrative: * Right hip fracture-postop day 1. Managed by orthopedics. * Pain management well controlled * History of hypertension stable on home dose ANNIE inhibitor * Chronic back pain status post stimulator placement. Stitches removal today. Continue opioid/gabapentin/baclofen * Anxiety disorder stable on home dose sertraline, trazodone * Full code * DVT prophylaxis will be as per orthopedics Plan * Continue postop therapies as tolerated * DVT prophylaxis on twice daily aspirin per orthopedics on discharge * Pre-existing medical condition management home medications * PT OT nutrition support * Discharge planning per case management Time Spent With Patient Time: Total time spent is greater than 50% in coordination of care (as documented) at patient's floor/unit and/or counseling patient: Total time spent with greater than 50% in coordination of care (as documented) at patient's floor/unit and/or counseling patient:: Greater than 35 minutes
[2021-07-26] MEDS: LACTATED RINGERS 1,000 ML IV SCH (14:10)
--- NOTE | 2021-07-26 14:22 | EKG ---
[facility] Test Date: 2021-07-24 Pat Name: Eliane Santillan Department: ED Room: Gender: Female Senior Business Manager: laura : 1940 Requested By: Salbador Dumont Order Number: [id number] Reading MD: Koffi Sanchez M.D. Measurements Intervals [place] Rate: 59 P: 62 MD: 175 QRS: 21 QRSD: 105 T: 44 QT: 435 QTc: 431 Interpretive Statements Sinus rhythm NONSPECIFIC T ABNORMALITIES, LATERAL LEADS Electronically Signed On 07-26-2021 14:21:41 PST by Koffi Sanchez M.D. /[email or web address]/[email or web address]/[id number]
--- NOTE | 2021-07-26 16:35 | Orthopedic Progress Note ---
SUBJECTIVE Subjective Patient information: Note initiated : 07/26/21 at 4:33 pm Service Date, if different from initiated Date: [] Patient: Eliane Santillan 80 y/o F admitted on 07/24/21 for Fall, Rt hip/leg pain. Chief Complaint: Postop day 1 right hip percutaneous pinning of subcapital fracture Patient is doing well overall with no complaints. She has been up ambulating several times already. Constitutional Vitals: Vital Signs Temp Pulse Resp BP Pulse Ox 98.0 F 59 L 20 122/59 92 07/26/21 12:00 07/26/21 12:00 07/26/21 12:00 07/26/21 12:00 07/26/21 12:00 Period Temp Pulse Resp BP Sys/Esteves Pulse Ox Last 24 Hr 96.5 F-98.0 F 59-79 16-20 122-166/59-77 92-96 Intake and Output 07/26/21 07/26/21 07/26/21 05:59 13:59 21:59 Intake Total 600 2660 Output Total 600 300 Balance 0 2360 Weight 151 lb 4.8 oz Patient Weight 07/27/21 05:59 Weight 151 lb 4.8 oz Intake & Output: Intake & Output 07/26/21 07/26/21 07/26/21 05:59 13:59 21:59 Intake Total 600 2660 Output Total 600 300 Balance 0 2360 Weight 151 lb 4.8 oz Intake: IV 2000 Sodium Chloride 0.9% 1,000 ml @ 1000 50 mls/hr IV .Q20H [facility] Rx#: [id number] Lactated Ringers 1,000 ml @ 75 1000 mls/hr IV .[id number] [facility] Rx#: [id number] Oral 600 660 Output: Urine Catheter Amount 600 300 Other: Meal Lunch Percent of Meal Consumed 100% Feeding Ability Assist with Tray Set Up Urine Appearance Clear Clear Urine Color Bright Yellow Bright Yellow Urine Odor Normal Additional findings Additional findings: Patient is alert and oriented on exam today. Her dressing is clean dry and intact. She is neurovascular intact in her leg. OBJ DATA Labs CBC & Chem 7: 07/26/21 05:36 07/26/21 05:36 Labs: Abnormal Lab Results 07/26/21 07/26/21 07/25/21 05:36 05:36 06:22 RBC 2.97 L Hgb 9.2 L Hct 27.6 L MCV MCHC Neut % (Auto) 81.9 H Lymph % (Auto) 10.8 L Lymph # (Auto) 0.91 L Potassium Glucose 120 H Calcium 8.4 L 8.5 L Total Protein 5.4 L 5.7 L Globulin 2.0 L Triglycerides 178 H Urine Appearance 07/25/21 07/24/21 07/24/21 06:22 15:10 14:10 RBC 3.34 L Hgb 10.1 L Hct MCV 103.3 H MCHC 29.3 L Neut % (Auto) Lymph % (Auto) Lymph # (Auto) 1.34 L Potassium 3.1 L Glucose 124 H Calcium Total Protein Globulin Triglycerides Urine Appearance Hazy A 07/24/21 13:42 RBC Hgb Hct 33.8 L MCV MCHC Neut % (Auto) Lymph % (Auto) Lymph # (Auto) Potassium Glucose Calcium Total Protein Globulin Triglycerides Urine Appearance Meds: Medications Acetaminophen (Acetaminophen 325 Mg Tablet) 650 mg PO Q4-6HP PRN; Protocol PRN Reason: Per Pain Protocol/Fever > 101 Hydrocodone Bitart/Acetaminophen (Hydrocodone/Apap 7.5/325mg Tablet) 0 tab PO Q4HP PRN; Protocol PRN Reason: Per Pain Protocol Last Admin: 07/26/21 15:04 Dose: 1 tab Documented by: Baclofen (Baclofen 10 Mg Tablet) 20 mg PO BIDP PRN PRN Reason: pain Last Admin: 07/25/21 20:45 Dose: 20 mg Documented by: Bisacodyl (Bisacodyl 10 Mg Supp.Rect) 10 mg [place] Q2-3DAYS PRN PRN Reason: Constipation Docusate Sodium (Docusate Sodium 100 Mg Capsule) 100 mg PO BID [facility] Last Admin: 07/26/21 08:39 Dose: 100 mg Documented by: Gabapentin (Gabapentin 300 Mg Capsule) 300 mg PO BID [facility] Last Admin: 07/26/21 08:39 Dose: 300 mg Documented by: Heparin Sodium (Porcine) (Heparin 5,000 Unit/Ml Vial) 5,000 unit SQ Q12 [facility] Last Admin: 07/26/21 08:53 Dose: Not Given Documented by: Hydralazine HCl (Hydralazine 20 Mg/Ml Vial) 10 mg IV Q4-6HP PRN PRN Reason: Hypertension Potassium Chloride 40 meq/ (Dextrose) 520 mls @ 130 mls/hr IV UD PRN PRN Reason: K+ = or < 3.5 Acetaminophen (Ofirmev) 650 mg in 65 mls @ 130 mls/hr IV Q6HP PRN; Protocol PRN Reason: Per Pain Protocol/Fever > 101 Magnesium Sulfate (Magnesium Sulfate) 2 gm in 50 mls @ 50 mls/hr IV UD PRN PRN Reason: MG = or < 1.7 Lactated Ringer's (Lactated Ringers) 1,000 mls @ 75 mls/hr IV .[id number] [facility] Last Admin: 07/26/21 14:10 Dose: Not Given Documented by: Lisinopril (Lisinopril 10 Mg Tablet) 10 mg PO BID [facility] Last Admin: 07/26/21 08:39 Dose: 10 mg Documented by: Magnesium Hydroxide (Magnesium Hydroxide 30 Ml Oral.Susp) 30 ml PO BIDP PRN PRN Reason: Constipation Melatonin (Melatonin 3 Mg Tablet) 3 mg PO HSP PRN PRN Reason: Insomnia Metoprolol Tartrate (Metoprolol Tartrate 5 Mg/5 Ml Vial) 5 mg IV Q5M PRN PRN Reason: Heart Rate > 140 bpm Morphine Sulfate (Morphine 4 Mg/Ml Vial) 0 mg IV Q1HP PRN; Protocol PRN Reason: Per Pain Protocol Ondansetron HCl (Ondansetron 4 Mg Odt Tablet) 4 mg SL Q4-6HP PRN; Protocol PRN Reason: Nausea And Vomiting Ondansetron HCl (Ondansetron 4 Mg/2 Ml Vial) 4 mg IV Q4-6HP PRN; Protocol PRN Reason: Nausea And Vomiting Ofloxacin 0.3 % (Ophthalmic Drops) 1 dose OU QID [facility] Last Admin: 07/26/21 11:01 Dose: Not Given Documented by: Polyethylene Glycol (Polyethylene Glycol 3350 17 Gm Packet) 17 gm PO DAILYP PRN PRN Reason: Constipation Potassium Chloride (Potassium Chloride 20 Meq Packet) 40 meq PO DAILYP PRN PRN Reason: K+ < 3.5 Last Admin: 07/24/21 21:04 Dose: 40 meq Documented by: Prednisolone Acetate (Prednisolone 1% Ophth Drops 1ml Bottle) 1 gtt OU TID [facility] Last Admin: 07/26/21 14:11 Dose: Not Given Documented by: Senna/Docusate Sodium (Sennosides/Docusate Sodium 1 Tab Tablet) 1 tab PO HS [facility] Last Admin: 07/25/21 20:45 Dose: 1 tab Documented by: Sertraline HCl (Sertraline 50 Mg Tablet) 50 mg PO QDAY [facility] Last Admin: 07/26/21 08:39 Dose: 50 mg Documented by: Sodium Chloride (0.9 % Sodium Chloride 10 Ml Syringe) 10 ml IV Q8 [facility] Last Admin: 07/26/21 15:05 Dose: 10 ml Documented by: Throat Lozenges (Benzocaine/Menthol 1 Lozenge) 1 lozenge PO PRN PRN PRN Reason: Sore Throat Trazodone HCl (Trazodone Hcl 100 Mg Tablet) 100 mg PO HSP PRN PRN Reason: Insomnia Last Admin: 07/25/21 20:45 Dose: 100 mg Documented by: A/P Narrative A/P Narrative: Postop day 1 right hip fracture fixed with cannulated screws. She is healing well overall clinically with radiographs showing no further displacement of the femoral neck and screws in good position. Discharge planning as per hospital team. Prescription for aspirin and pain c ontrol was provided. Follow-up with orthopedics in 2 weeks time for wound check and suture removal. Orthopedics will sign off for now. Please call Dr. Barr if any questions or concerns. Time Spent With Patient Time: Total time spent is greater than 50% in coordination of care (as documented) at patient's floor/unit and/or counseling patient:
[2021-07-26] MEDS: traZODone HCL 100 MG TABLET PO PRN (21:31)
[2021-07-26] MEDS: SENNOSIDES/DOCUSATE SODIUM 1 TAB TABLET PO SCH (21:32)
[2021-07-26] MEDS: BACLOFEN 10 MG TABLET PO PRN (21:32)
[2021-07-27] MEDS: LACTATED RINGERS 1,000 ML IV SCH (01:15)
[2021-07-27] MEDS: HYDROCODONE/APAP 7.5/325MG TABLET PO PRN ×2 (02:48→08:18)
[2021-07-27] MEDS: 0.9 % SODIUM CHLORIDE 10 ML SYRINGE IV SCH ×2 (05:10→12:09)
[2021-07-27] MEDS: HEPARIN 5,000 UNIT/ML VIAL SQ SCH (08:17)
[2021-07-27] MEDS: DOCUSATE SODIUM 100 MG CAPSULE PO SCH (08:17)
[2021-07-27] MEDS: LISINOPRIL 10 MG TABLET PO SCH (08:17)
[2021-07-27] MEDS: SERTRALINE 50 MG TABLET PO SCH (08:18)
[2021-07-27] MEDS: GABAPENTIN 300 MG CAPSULE PO SCH (08:18)
[2021-07-27 08:32] LABS: Basophils # (Auto) 0.04 K/mcL (0.00-0.30); Basophils % (Auto) 0.5 % (0.0-2.0); Eosinophils # (Auto) 0.56 K/mcL (0.00-0.70); Eosinophils % (Auto) 7.7 % (0.0-7.0); Hematocrit 28.6 % (34.1-44.9); Lymphocytes # (Auto) 2.23 K/mcL (1.50-4.80); Lymphocytes % (Auto) 30.5 % (15.5-49.0); Mean Cell Volume 95.7 fL (80.0-100.0); Mean Corpuscular HGB Conc 31.5 g/dL (31.0-36.0); Mean Platelet Volume 9.8 fL (7.4-10.4); Monocytes # (Auto) 0.47 K/mcL (0.10-0.90); Monocytes % (Auto) 6.4 % (1.0-12.0); Neutrophils % (Auto) 54.9 % (38.0-78.0); Platelet Count 156 K/mcL (140-440); RBC 2.99 M/mcL (3.59-5.38); Red Cell Distribution Width 13.2 % (11.5-14.5); WBC 7.3 K/mcL (4.5-11.0)
[2021-07-27 08:43] LABS: INR 0.9 (0.9-1.1); Prothrombin Time 13.1 sec (11.9-14.5)
[2021-07-27 08:56] LABS: ALT/SGPT 8 U/L (<40); AST/SGOT 16 U/L (<32); Albumin 3.3 gm/dL (3.2-5.2); Albumin/Globulin Ratio 1.5 (1.0-2.3); Alkaline Phosphatase 57 U/L (39-117); Bilirubin,Direct < 0.2 mg/dL (0-0.3); Bilirubin,Total 0.2 mg/dL (0.1-1.0); Blood Urea Nitrogen 14 mg/dL (8-23); Calcium 8.4 mg/dL (8.6-10.4); Carbon Dioxide 27 mmol/L (22-30); Chloride 103 mmol/L (96-108); Globulin 2.2 gm/dL (2.2-3.7); Glomerular Filtration Rate 92; Glucose 81 mg/dL (70-105); Lactate Dehydrogenase 193 U/L (135-225); Phosphorous 2.3 mg/dL (2.5-4.5); Triglycerides 123 mg/dL (<150); Uric Acid 2.8 mg/dL (2.5-8.0)
[2021-07-27] MEDS: prednisoLONE 1% OPHTH DROPS 1ML BOTTLE OU SCH (10:12)
[2021-07-27] MEDS: OFLOXACIN 0.3% OU SCH ×2 (10:12→12:08)
--- NOTE | 2021-07-27 11:27 | Discharge Summary ---
Discharge Provider Provider Patient information: Note initiated : 07/27/21 at 11:24 am Service Date, if different from initiated Date: [] Patient: Eliane Santillan 80 y/o F admitted on 07/24/21 for Fall, Rt hip/leg pain. Chief Complaint: [] Date of admission: 07/24/21 15:20 Discharge date: 07/27/21 Primary care physician: Clarissa Santillan Consults: 07/24/21 Consult to Physician [CONS] Stat Comment: Consulting Provider: Jose Carlos Naik Reason For Exam: Physician to Consult Discharge Meds Discharge Medications Home Medications baclofen 20 mg tablet 20 mg PO BID PRN #180 tab 02/03/21 [Rx Confirmed 07/24/21 Last Taken Unknown] sertraline 50 mg tablet 50 mg PO QDAY #90 tab 07/12/21 [Rx Confirmed 07/24/21 Last Taken Unknown] hydrocodone 5 mg-acetaminophen 325 mg tablet 1 tab PO Q4-6H PRN #25 tab 07/19/21 [Rx Confirmed 07/24/21 Last Taken Unknown] trazodone 100 mg tablet See Rx Instructions .ROUTE .COMPLEX #90 tab 07/22/21 [Rx Confirmed 07/24/21 Last Taken Unknown] Systane (PF) 1 drp OPHTHALMIC (EYE) DAILY 07/24/21 [History Confirmed 07/24/21 Last Taken 07/24/21] Systane Nighttime 1 drp OPHTHALMIC (EYE) HS 07/24/21 [History Confirmed 07/24/21 Last Taken 07/23/21] gabapentin 300 mg capsule 300 mg PO BID 07/24/21 [History Confirmed 07/24/21 Last Taken Unknown] lisinopril 10 mg tablet 10 mg PO BID 07/24/21 [History Confirmed 07/24/21 Last Taken Unknown] aspirin 81 mg chewable tablet 81 mg PO BID #60 tab 07/25/21 [Rx Last Taken Unknown] hydrocodone 7.5 mg-acetaminophen 325 mg tablet 1 tab PO Q4H PRN #60 tab 07/25/21 [Rx Last Taken Unknown] COURSE Hospital Course Hospital course: Discharge diagnosis * Right hip fracture-status post operative intervention by orthopedics. Discharging per orthopedics * History of hypertension stable on home dose ANNIE inhibitor * Chronic back pain status post stimulator placement.Managed on home dose opioid/gabapentin/baclofen * Anxiety disorder stable on home dose sertraline, trazodone Brief hospital course Ms. Santillan is a 80 year old F with a history of neuropathy/DJD/hypertension/anxiety disorder who presents to the ER along with her Sister Rowena after sustaining a ground-level fall in her garage when she tripped and then landed on her right side. Fortunately she had a yard clerk who saw her falling and was able to summon EMS. Initial work-up the ER was consistent with right hip fracture. Orthopedic was consulted and requested admission under hospitalist service. Patient underwent blood work which was unremarkable. At the time of my evaluation patient is alert and oriented. She is able to answer most the question endorse history as above. She denies any precipitating events including lightheadedness dizziness prior to fall and attributes the fall to getting off balance. She denies any prior similar episodes of syncope, lightheadedness dizziness vertigo, recent fever chills, diarrhea, dysuria or changes in medications. 07/25-patient doing well. Will undergo operative intervention today. Will review postop. No overnight events eluding fever chills or recent concerns per nursing staff. Stable labs and hemodynamics. White count 6.7, potassium improved to 4 from 3.1 with replacement, creatinine 0.7 . 07/26 patient doing well. Stable hemodynamics, hemoglobin 9.2, no significant postop pain. Ongoing physical therapy. Denies fever chills nausea. Tolerating diet. No additional concerns expressed by nursing staff. 07/27-patient doing well. No overnight events. Tolerating physical therapy. Discharging as per orthopedic limitations on twice daily aspirin. No overnight fever chills. Stable hemodynamics and labs. Hemoglobin 9. Discharging with instructions as below Discharge diagnosis: Right hip fracture Time Spent with Patient Time attestation: Total time spent providing and/or coordinating discharge services: EXAM Constitutional Vitals: Temp Pulse Resp BP Pulse Ox 97.6 F 58 L 16 152/79 91 07/27/21 08:00 07/27/21 08:00 07/27/21 08:00 07/27/21 08:00 07/27/21 08:00 Discharge Data Data Completed and Pending Labs on day of discharge: Labs from last 24 hours 07/27/21 07/27/21 07/27/21 05:21 05:21 05:21 WBC 7.3 RBC 2.99 L Hgb 9.0 L Hct 28.6 L MCV 95.7 MCH 30.1 MCHC 31.5 RDW 13.2 Plt Count 156 MPV 9.8 Neut % (Auto) 54.9 Lymph % (Auto) 30.5 Mcminn % (Auto) 6.4 Eos % (Auto) 7.7 H Baso % (Auto) 0.5 Lymph # (Auto) 2.23 [place]minn # (Auto) 0.47 Eos # (Auto) 0.56 Baso # (Auto) 0.04 Absolute Neutrophils 4.00 PT 13.1 INR 0.9 Sodium 137 Potassium 4.2 Chloride 103 Carbon Dioxide 27 Anion Gap 7.0 L BUN 14 Creatinine 0.5 L GFR Calculation 92 Glucose 81 Uric Acid 2.8 Calcium 8.4 L Phosphorus 2.3 L Magnesium 2.2 Total Bilirubin 0.2 Direct Bilirubin < 0.2 GGT 21 AST 16 ALT 8 Alkaline Phosphatase 57 Lactate Dehydrogenase 193 Total Protein 5.5 L Albumin 3.3 Globulin 2.2 Albumin/Globulin Ratio 1.5 Triglycerides 123 Discharge Plan Patient/Caregiver Discharge Instructions Activity: increase activity as tolerated Diet: Regular Diet Activity Restrictions/Additional Instructions: Follow orthopedics instructions for postoperative care Follow-up with PCP PT OT at [facility] Prescriptions: New hydrocodone-acetaminophen 7.5-325 mg tablet 1 tab PO Q4H PRN (Reason: pain) Qty: 60 0RF aspirin 81 mg tablet,chewable 81 mg PO BID Qty: 60 0RF Continued baclofen 20 mg tablet 20 mg PO BID PRN (Reason: pain) Qty: 180 3RF sertraline 50 mg tablet 50 mg PO QDAY Qty: 90 1RF trazodone 100 mg tablet See Rx Instructions .ROUTE .COMPLEX Qty: 90 2RF Dose Instruction: TAKE 1 TABLET BY MOUTH ONCE DAILY AT BEDTIME NEEDED FOR INSOMNIA Rx Instructions: TAKE 1 TABLET BY MOUTH ONCE DAILY AT BEDTIME NEEDED FOR INSOMNIA hydrocodone-acetaminophen 5-325 mg tablet 1 tab PO Q4-6H PRN (Reason: pain) Qty: 25 0RF Rx Instructions: Take 1-2 tabs PO PRN pain gabapentin 300 mg capsule 300 mg PO BID 0RF lisinopril 10 mg tablet 10 mg PO BID 0RF Systane Nighttime 1 drp ophthalmic (eye) HS 0RF Systane (PF) 1 drp ophthalmic (eye) DAILY 0RF Follow Up Plan Follow up with: Jaylan Barr MD [Physician] - Clarissa Santillan ARNP [Primary Care Provider] - Patient Disposition: Xfer SNF Rehab Potential: Fair I certify that the patient requires SNF services: Yes Overall status at discharge: patient is progressing back to baseline Discharge Orders: Discharge Order (Routine); Ordered 07/28/21 Ordered By: Jaylan Barr
== END 2021-07-27 13:45 | DRG 482 ==
LOC: ED 12:46 → MEDSUR 15:20
PROVIDERS: ADMIT Internal Medicine; ATTEND Internal Medicine